=== PATIENT | female | born 1940 | race Caucasian/White ===

== ENCOUNTER 2018-04-19 19:26 | Inpatient (IN) ==
[2018-04-19] MEDS ORDERED: 0.9 % Sodium Chloride 500 ML IVC ONE (19:32)
[2018-04-19] MEDS ORDERED: Aspirin 81 MG TAB.CHEW PO ONE (19:32)
[2018-04-19] MEDS ORDERED: Isovue-370 500 ML INFUS..BTL IV ONE (19:33)
--- NOTE | 2018-04-19 19:42 | Emergency Department Note ---
Disposition Clinical Impression: NSTEMI (non-ST elevated myocardial infarction) Chest pain Qualifiers: Chest pain type: unspecified Qualified Code(s): R07.9 - Chest pain, unspecified Disposition: Admitted As Inpatient Condition: Fair Time of Disposition: 21:53 Chest Pain HPI - General Chief Complaint: ED Chest Pain Stated Complaint: CP Time Seen by Provider: 04/19/18 19:32 Source: patient, EMS Limitations: no limitations Vital Signs Reviewed: Yes Nursing Notes Reviewed: Yes - History of Present Illness HPI Narrative: Patient is a 77-year-old female who presents to [facility] ED via EMS with concern for chest pain. States her symptoms started abruptly at 3 AM. Patient states this pain came on gradually but radiated into her back. Admits to some nausea, no vomiting. No fever or chills. Past medical history significant for hypertension, CVA, hyperlipidemia. Patient was hypertensive upon her arrival at 236/143. Patient's repeat blood pressure in the room is improved at 160s over 111. Patient states she has had her blood pressure medications today. Pt complaint: chest pain Onset (ago): hour(s) Time: 03:00 Duration: intermittent Onset: during rest Pain Location: substernal Severity: moderate Severity scale (1-10): 5 Quality: aching, dull Pain Radiation: back Improves with: nothing Worsens with: nothing Associated symptoms: Reports: nausea, dyspnea. Denies: vomiting, fever, cough Treatments prior to arrival chest pain: none - Related Data Home Medications Medication Instructions Recorded Confirmed Acetaminophen/Diphenhydramine 1 tab PO HS 10/09/16 03/07/18 [Acetaminophen Pm Caplet] Cholecalciferol (D-3) [Vitamin D] 1,000 unit PO DAILY 10/09/16 03/07/18 HYDROcodone/Acet 5/325 mg [[place] 1 tab PO DAILY PRN 10/09/16 03/07/18 5-325 mg] Levothyroxine [Synthroid] 88 mcg PO DAILY 10/09/16 03/07/18 Pravastatin Sodium [Pravachol] 20 mg PO DAILY 10/09/16 03/07/18 hydrOXYzine HCl [Hydroxyzine HCl] 50 mg PO Q6H PRN 10/09/16 03/07/18 L. Acidophilus/Pectin, [place] 1 cap PO DAILY 10/22/16 03/07/18 [Acidophilus Probiotic Capsule] cloNIDine HCl [CloNIDine HCl] 0.2 mg PO BID 10/22/16 03/07/18 Diltiazem HCl [Diltiazem 24Hr Cd] 360 mg PO DAILY 12/30/17 03/07/18 Potassium Chloride 10 meq PO DAILY 12/30/17 03/07/18 Olmesartan Medoxomil [Olmesartan 20 mg PO DAILY 04/19/18 04/19/18 Medoxomil] Previous Rx's Medication Instructions Recorded Ascorbic Acid [Vitamin C] 500 mg PO DAILY #30 tablet 12/06/17 Aspirin 81 mg PO DAILY 365 Days tab.chew 12/06/17 Magnesium Oxide [Mag-Ox] 400 mg PO DAILY #5 tablet 12/06/17 Allergies Allergy/AdvReac Type Severity Reaction Status Date / Time acetaminophen [From Percocet] AdvReac Nausea Verified 04/19/18 21:02 caffeine [From Cafergot] AdvReac Swelling Verified 04/19/18 21:02 of Lip/Tongue/Throat codeine AdvReac Rash Verified 04/19/18 21:02 Ergotamine [From Cafergot] AdvReac Swelling Verified 04/19/18 21:02 of Lip/Tongue/Throat Oxycodone [From Percocet] AdvReac Swelling Verified 04/19/18 21:02 of Lip/Tongue/Throat All systems ED: reviewed and negative except as stated. Chest Pain PMH - Past Medical History Medical history: Reports: arthritis, hyperlipidemia, hypertension, RA, thyroid disease Surgical history: Reports: hysterectomy Psychiatric history: Reports: depression - Social History Smoking Status: Light tobacco smoker Alcohol use: Reports: occasionally Drug use: Reports: none Physical Exam - General Limitations: no limitations General appearance: alert - Head Head exam: atraumatic, normocephalic, normal inspection - Eye Eye exam: Present: EOMI - ENT ENT exam: normal exam, normal oropharynx, mucous membranes moist - Neck Neck exam: Present: normal inspection, full ROM, trachea midline - Chest Chest inspection: Present: normal inspection, symmetric chest wall rise - Respiratory Respiratory exam: Present: normal lung sounds bilaterally - Cardiovascular Cardiovascular exam: Present: normal rhythm, tachycardia - Abdominal Exam Abdominal exam: Present: soft, Non-Tender. Absent: tenderness, distention, guarding, rebound, rigidity - Extremities Exam Extremities exam: Present: normal inspection, full ROM. Absent: tenderness, pedal edema - Expanded Upper Extremity Exam Vascular exam: Normal: radial pulse (decreased LUE vs RUE pulse) - Neurological Exam Neurological exam: Present: alert, oriented X3 - Psychiatric Psychiatric exam: Present: normal affect, normal mood - Skin Skin exam: Present: warm, dry, intact, normal color Course Course Narrative: Patient seen and examined. Chest pain with hypertension. Patient is hypertensive with initial blood pressure 240s over 140s. Due to the pain radiating into the back and a pulse deficit on palpation, concern for possible aortic dissection. CTA of the chest abdomen and pelvis ordered. Cardiopulmonary workup initiated. We will give nitroglycerin to see if this helps with her chest pain. - Reevaluation(s) Reevaluation #1: Patient's troponin was elevated at 0.18. Heparin drip started for NSTEMI. Repeat EKG was obtained which shows persistent inverted T waves in leads V3 and V4. I discussed the patient's presentation with the hospitalist who has accepted patient for admission. Nitroglycerin drip was started. I also discussed the case with cardiology who will see the patient in consultation. Time: 21:52 Vital Signs Temperature 97.8 F 04/19/18 19:29 Pulse Rate 105 04/19/18 19:29 Respiratory Rate 14 04/19/18 19:29 Blood Pressure 168/117 04/19/18 19:29 O2 Sat by Pulse Oximetry 96 04/19/18 19:29 Temperature 97.8 F 04/19/18 19:29 Pulse Rate 104 04/19/18 21:23 Respiratory Rate 14 04/19/18 21:23 Blood Pressure 211/115 04/19/18 21:23 O2 Sat by Pulse Oximetry 97 04/19/18 21:23 Oxygen Delivery Oxygen Delivery Room Air Chest Pain - Medical Records Medical records reviewed: Yes I reviewed the patient's medical records. - Lab Data Lab results reviewed: Yes I reviewed the patient's lab results. Result diagrams: 04/19/18 20:11 04/19/18 20:11 Lab Results 04/19/18 04/19/18 04/19/18 Range/Units 20:11 20:11 20:11 WBC 7.2 (4.3-11.1) K/mcL RBC 4.56 (3.82-4.97) M/mcL Hgb 13.0 (11.5-15.4) g/dL Hct 39.5 (35.3-44.9) % MCV 86.6 (83.0-100.0) fL MCH 28.5 (28.0-33.3) pg MCHC 32.9 (31.6-35.5) g/dL RDW 13.4 (11.5-14.5) % Plt Count 235 (140-400) K/mcL MPV 9.9 (9.4-12.4) fL Immature Gran % 0.1 (0-4) % Seg Neutrophils % 68.3 % Lymphocytes % 21.1 % Monocytes % 9.0 % Eosinophils % 1.2 % Basophils % 0.3 % Neutrophils # 4.9 (1.6-8.9) K/mcL Lymphocytes # 1.5 (0.6-4.6) K/mcL Monocytes # 0.7 (0.0-1.3) K/mcL Eosinophils # 0.1 (0.0-0.6) K/mcL Basophils # 0.0 (0.0-0.2) K/mcL PT 11.5 (9.4-12.1) Seconds INR 1.0 APTT 34.8 (26.0-36.0) Seconds Heparin Anti-Xa, Unfract 0.04 L (0.30-0.70) IU/mL Sodium (136-145) mEq/L Potassium (3.5-5.1) mEq/L Chloride (98-107) mEq/L Carbon Dioxide (23-29) mEq/L BUN (8-23) mg/dL Creatinine (0.60-1.20) mg/dL Est GFR ( Amer) (> 60) Est GFR (Non-Af Amer) (> 60) BUN/Creatinine Ratio (6-26) Glucose (70-105) mg/dL Calculated Osmolality (280-300) Calcium (8.6-10.3) mg/dL Troponin I (< 0.04) ng/mL B-Natriuretic Peptide 601 H (Less than 100) pg/mL 04/19/18 Range/Units 20:11 WBC (4.3-11.1) K/mcL RBC (3.82-4.97) M/mcL Hgb (11.5-15.4) g/dL Hct (35.3-44.9) % MCV (83.0-100.0) fL MCH (28.0-33.3) pg MCHC (31.6-35.5) g/dL RDW (11.5-14.5) % Plt Count (140-400) K/mcL MPV (9.4-12.4) fL Immature Gran % (0-4) % Seg Neutrophils % % Lymphocytes % % Monocytes % % Eosinophils % % Basophils % % Neutrophils # (1.6-8.9) K/mcL Lymphocytes # (0.6-4.6) K/mcL Monocytes # (0.0-1.3) K/mcL Eosinophils # (0.0-0.6) K/mcL Basophils # (0.0-0.2) K/mcL PT (9.4-12.1) Seconds INR APTT (26.0-36.0) Seconds Heparin Anti-Xa, Unfract (0.30-0.70) IU/mL Sodium 140 (136-145) mEq/L Potassium 3.8 (3.5-5.1) mEq/L Chloride 100 (98-107) mEq/L Carbon Dioxide 32 H (23-29) mEq/L BUN 13 (8-23) mg/dL Creatinine 0.59 L (0.60-1.20) mg/dL Est GFR ( Amer) > 60 (> 60) Est GFR (Non-Af Amer) > 60 (> 60) BUN/Creatinine Ratio 22 (6-26) Glucose 116 H (70-105) mg/dL Calculated Osmolality 291 (280-300) Calcium 10.1 (8.6-10.3) mg/dL Troponin I 0.18 H* (< 0.04) ng/mL B-Natriuretic Peptide (Less than 100) pg/mL - Radiology Data Radiology results reviewed: Yes I reviewed the patient's radiology results. Abdomen/Pelvis CTA 04/19/18 19:33 IMPRESSION: Multifocal atherosclerotic change throughout the chest abdomen and pelvis with multifocal associated narrowing in the abdomen and pelvis. There is no dissection. Multiple asymmetric lymph nodes in the right axillary region. Follow-up is recommended. A few tiny nodular densities are noted in the chest as described. These are indeterminate. There is no pathologic adenopathy in the mediastinum or hilar regions. No acute abnormality in the abdomen. Diverticulosis in the colon. Segmental incomplete distention in the sigmoid colon. This is most likely due to underdistention and less likely secondary to wall thickening. Degenerative disc disease in the lumbar spine, greatest at L4-5. D/ / Osmar Pablo / Osmar Pablo Interpreting Provider: Osmar Pablo Chest CTA 04/19/18 19:33 IMPRESSION: Multifocal atherosclerotic change throughout the chest abdomen and pelvis with multifocal associated narrowing in the abdomen and pelvis. There is no dissection. Multiple asymmetric lymph nodes in the right axillary region. Follow-up is recommended. A few tiny nodular densities are noted in the chest as described. These are indeterminate. There is no pathologic adenopathy in the mediastinum or hilar regions. No acute abnormality in the abdomen. Diverticulosis in the colon. Segmental incomplete distention in the sigmoid colon. This is most likely due to underdistention and less likely secondary to wall thickening. Degenerative disc disease in the lumbar spine, greatest at L4-5. D/ / Osmar Pablo / Osmar Pablo Interpreting Provider: Osmar Pablo - EKG Data EKG attestation: Yes I reviewed and interpreted this EKG. EKG results narrative: EKG done at 2058 shows sinus tachycardia with a rate of [address] elevation or depression noted. Patient does have inverted T waves in leads V3 and V4 which do appear new from EKG done 12/04/2017. Heart Score - Score History: Moderately Suspicious EKG: Non Specific repolarisation Disturbance Age: Greater than 65 Risk Factors: Equal/Greater than 3 risk factor or history of atherosclerotic disease Troponin: Less than normal limit HEART Score Total: 6 Attestation Statement - Attestation Attestation: I, Sudarshan Miller DO, examined this patient [id number] and my medical decision-making was reviewed with Mesha Ramos DO , Resident Physician. I agree with the documented findings, disposition and treatment plan as described except to the extent set forth below. Please see my progress notes for details.
[2018-04-19] MEDS: Nitroglycerin 0.4 MG TAB.SUBL SL PRN ×2 (20:06→21:14)
[2018-04-19 20:22] LABS: Basophils % 0.3 %; Eosinophils # 0.1 K/mcL (0.0-0.6); Eosinophils % 1.2 %; Hematocrit 39.5 % (35.3-44.9); Immature Granulocytes % 0.1 % (0-4); Lymphocytes # 1.5 K/mcL (0.6-4.6); Lymphocytes % 21.1 %; Mean Corpuscular HGB Conc 32.9 g/dL (31.6-35.5); Mean Corpuscular Hemoglobin 28.5 pg (28.0-33.3); Mean Corpuscular Volume 86.6 fL (83.0-100.0); Mean Platelet Volume 9.9 fL (9.4-12.4); Monocytes # 0.7 K/mcL (0.0-1.3); Neutrophils # 4.9 K/mcL (1.6-8.9); Platelet Count 235 K/mcL (140-400); Red Blood Count 4.56 M/mcL (3.82-4.97); Red Cell Distribution Width 13.4 % (11.5-14.5); Segmented Neutrophils % 68.3 %
[2018-04-19 20:33] LABS: Prothrombin Time 11.5 Seconds (9.4-12.1)
[2018-04-19 20:35] LABS: Activated Partial Thrombo Time 34.8 Seconds (26.0-36.0)
[2018-04-19 20:42] LABS: BUN/Creatinine Ratio 22 (6-26); Blood Urea Nitrogen 13 mg/dL (8-23); Calcium 10.1 mg/dL (8.6-10.3); Carbon Dioxide 32 mEq/L (23-29); Chloride 100 mEq/L (98-107); Glucose 116 mg/dL (70-105); Osmolality,Calculated 291 (280-300); Potassium 3.8 mEq/L (3.5-5.1); Sodium 140 mEq/L (136-145); eGFR For Non-African Americans > 60 (> 60)
[2018-04-19 20:48] LABS: Troponin I 0.18 ng/mL (< 0.04)
[2018-04-19] MEDS ORDERED: *HR* Heparin 5,000 UNIT/ML VIAL IVP ONE (20:51)
[2018-04-19] MEDS ORDERED: *HR* Heparin 5,000 UNIT/ML VIAL IVP PRN ×2 (20:51)
[2018-04-19] MEDS ORDERED: Heparin 25,000 UNIT/500 ML D5W 25,000 UNIT/500 ML BAG IVC SCH (21:00)
[2018-04-19] MEDS ORDERED: cloNIDine HCl 0.1 MG TABLET PO ONE (21:02)
--- NOTE | 2018-04-19 21:07 | Emergency Department Note ---
Disposition Clinical Impression: Chest pain, NSTEMI (non-ST elevated myocardial infarction) Disposition: Admitted As Inpatient Condition: Fair Time of Disposition: 21:50 General Adult HPI - General Chief complaint: ED Chest Pain Stated complaint: CP Time Seen by Provider: 04/19/18 19:32 Source: patient, EMS Limitations: no limitations - History of Present Illness Pain Scale: 5 - Related Data Home Medications Medication Instructions Recorded Confirmed Acetaminophen/Diphenhydramine 1 tab PO HS 10/09/16 03/07/18 [Acetaminophen Pm Caplet] Cholecalciferol (D-3) [Vitamin D] 1,000 unit PO DAILY 10/09/16 03/07/18 HYDROcodone/Acet 5/325 mg [[place] 1 tab PO DAILY PRN 10/09/16 03/07/18 5-325 mg] Levothyroxine [Synthroid] 88 mcg PO DAILY 10/09/16 03/07/18 Pravastatin Sodium [Pravachol] 20 mg PO DAILY 10/09/16 03/07/18 hydrOXYzine HCl [Hydroxyzine HCl] 50 mg PO Q6H PRN 10/09/16 03/07/18 L. Acidophilus/Pectin, [place] 1 cap PO DAILY 10/22/16 03/07/18 [Acidophilus Probiotic Capsule] cloNIDine HCl [CloNIDine HCl] 0.2 mg PO BID 10/22/16 03/07/18 Diltiazem HCl [Diltiazem 24Hr Cd] 360 mg PO DAILY 12/30/17 03/07/18 Potassium Chloride 10 meq PO DAILY 12/30/17 03/07/18 Olmesartan Medoxomil [Olmesartan 20 mg PO DAILY 04/19/18 04/19/18 Medoxomil] Previous Rx's Medication Instructions Recorded Ascorbic Acid [Vitamin C] 500 mg PO DAILY #30 tablet 12/06/17 Aspirin 81 mg PO DAILY 365 Days tab.chew 12/06/17 Magnesium Oxide [Mag-Ox] 400 mg PO DAILY #5 tablet 12/06/17 Allergies Allergy/AdvReac Type Severity Reaction Status Date / Time acetaminophen [From Percocet] AdvReac Nausea Verified 04/19/18 21:02 caffeine [From Cafergot] AdvReac Swelling Verified 04/19/18 21:02 of Lip/Tongue/Throat codeine AdvReac Rash Verified 04/19/18 21:02 Ergotamine [From Cafergot] AdvReac Swelling Verified 04/19/18 21:02 of Lip/Tongue/Throat Oxycodone [From Percocet] AdvReac Swelling Verified 04/19/18 21:02 of Lip/Tongue/Throat Past Medical History - Past Medical History Medical history: Reports: arthritis, hyperlipidemia, hypertension, RA, thyroid disease Surgical history: Reports: hysterectomy Psychiatric history: Reports: depression - Social History Smoking Status: Light tobacco smoker Smokeless Tobacco Status: Yes (vapor) Alcohol use: Reports: occasionally Drug use: Reports: none Physical Exam - General Limitations: no limitations General appearance: alert Course Vital Signs Temperature 97.8 F 04/19/18 19:29 Pulse Rate 105 04/19/18 19:29 Respiratory Rate 14 04/19/18 19:29 Blood Pressure 168/117 04/19/18 19:29 O2 Sat by Pulse Oximetry 96 04/19/18 19:29 Temperature 97.8 F 04/19/18 19:29 Pulse Rate 104 04/19/18 21:23 Respiratory Rate 14 04/19/18 21:23 Blood Pressure 211/115 04/19/18 21:23 O2 Sat by Pulse Oximetry 97 04/19/18 21:23 Oxygen Delivery Oxygen Delivery Room Air Medical Decision Making - Lab Data Result diagrams: 04/19/18 20:11 04/19/18 20:11 Lab Results 04/19/18 04/19/18 04/19/18 Range/Units 20:11 20:11 20:11 WBC 7.2 (4.3-11.1) K/mcL RBC 4.56 (3.82-4.97) M/mcL Hgb 13.0 (11.5-15.4) g/dL Hct 39.5 (35.3-44.9) % MCV 86.6 (83.0-100.0) fL MCH 28.5 (28.0-33.3) pg MCHC 32.9 (31.6-35.5) g/dL RDW 13.4 (11.5-14.5) % Plt Count 235 (140-400) K/mcL MPV 9.9 (9.4-12.4) fL Immature Gran % 0.1 (0-4) % Seg Neutrophils % 68.3 % Lymphocytes % 21.1 % Monocytes % 9.0 % Eosinophils % 1.2 % Basophils % 0.3 % Neutrophils # 4.9 (1.6-8.9) K/mcL Lymphocytes # 1.5 (0.6-4.6) K/mcL Monocytes # 0.7 (0.0-1.3) K/mcL Eosinophils # 0.1 (0.0-0.6) K/mcL Basophils # 0.0 (0.0-0.2) K/mcL PT 11.5 (9.4-12.1) Seconds INR 1.0 APTT 34.8 (26.0-36.0) Seconds Heparin Anti-Xa, Unfract 0.04 L (0.30-0.70) IU/mL Sodium (136-145) mEq/L Potassium (3.5-5.1) mEq/L Chloride (98-107) mEq/L Carbon Dioxide (23-29) mEq/L BUN (8-23) mg/dL Creatinine (0.60-1.20) mg/dL Est GFR ( Amer) (> 60) Est GFR (Non-Af Amer) (> 60) BUN/Creatinine Ratio (6-26) Glucose (70-105) mg/dL Calculated Osmolality (280-300) Calcium (8.6-10.3) mg/dL Troponin I (< 0.04) ng/mL B-Natriuretic Peptide 601 H (Less than 100) pg/mL 04/19/18 Range/Units 20:11 WBC (4.3-11.1) K/mcL RBC (3.82-4.97) M/mcL Hgb (11.5-15.4) g/dL Hct (35.3-44.9) % MCV (83.0-100.0) fL MCH (28.0-33.3) pg MCHC (31.6-35.5) g/dL RDW (11.5-14.5) % Plt Count (140-400) K/mcL MPV (9.4-12.4) fL Immature Gran % (0-4) % Seg Neutrophils % % Lymphocytes % % Monocytes % % Eosinophils % % Basophils % % Neutrophils # (1.6-8.9) K/mcL Lymphocytes # (0.6-4.6) K/mcL Monocytes # (0.0-1.3) K/mcL Eosinophils # (0.0-0.6) K/mcL Basophils # (0.0-0.2) K/mcL PT (9.4-12.1) Seconds INR APTT (26.0-36.0) Seconds Heparin Anti-Xa, Unfract (0.30-0.70) IU/mL Sodium 140 (136-145) mEq/L Potassium 3.8 (3.5-5.1) mEq/L Chloride 100 (98-107) mEq/L Carbon Dioxide 32 H (23-29) mEq/L BUN 13 (8-23) mg/dL Creatinine 0.59 L (0.60-1.20) mg/dL Est GFR ( Amer) > 60 (> 60) Est GFR (Non-Af Amer) > 60 (> 60) BUN/Creatinine Ratio 22 (6-26) Glucose 116 H (70-105) mg/dL Calculated Osmolality 291 (280-300) Calcium 10.1 (8.6-10.3) mg/dL Troponin I 0.18 H* (< 0.04) ng/mL B-Natriuretic Peptide (Less than 100) pg/mL Critical Care Time Critical Care Time: Yes Total Critical Care Time: 35 Attestation: Critical care performed: Time is exclusive of separately billable procedures. Time includes: direct patient care, patient reassessment, coordination of patient care, interpretation of data (laboratory data, radiology data, and respiratory data), review of patient's medical records, medical consultation and documentation of patient care. Procedures included in critical care time: Procedures excluded from critical care time: Attestation Statement - Attestation Attestation: I, Sudarshan Miller DO, examined this patient [id number] and my medical decision-making was reviewed with Mesha Ramos DO , Resident Physician. I agree with the documented findings, disposition and treatment plan as described except to the extent set forth below. Please see my progress notes for details. 77-year-old female presents emergency room by EMS for evaluation of chest pain that started approximately 3 AM. Patient has had intermittent symptoms throughout the day. She describes the pain anterior chest wall that radiates into her back in between the scapula. Patient has a cardiac evaluation completed in the past including an echo and stress test but is been multiple years. She does have hypertension that is poorly controlled. Patient does have hyperlipidemia. Denies any diabetes. Patient decided to come in this afternoon because the pain has been intermittent but progressively getting worse. On presentation patient's blood pressure was 243/135. Because the patient's pain and the back was determined that CT angiography the chest and abdomen will be completed ruling out dissection or aneurysm. Patient does not have a specific history of this. Because of the escalated blood pressure is a concern. Patient's creatinine from 01/31/18. To be stable with no significant signs of renal insufficiency. Patient will have fluids ordered as well as aspirin EKG CBC chemistry troponin and BNP here in the emergency room. Disposition will most likely be admission to the hospital once the full workup treatment course and evaluation are established. Physical exam is otherwise unremarkable she is resting comfortably in the bed she says the pain is much better than it has been previously but is not gone. Her lungs are clear heart is regular but intermittently tachycardic her abdomen is soft nontender nondistended with no guarding no rigidity no peritoneal symptoms. She has no pulsatile masses or lesions. She moves all 4 extremities without any difficulty. She does have a slight left-sided facial droop which is consistent with a previous stroke. She also had a carotid endarterectomy that appears to be stable. There is no carotid bruit noted on evaluation. Patient will have detailed workup completed this time in the disposition will be determined. She denies any hematuria or hematochezia at this point. She has not had any history of gastrointestinal bleed. Patient will require admission once workup and treatment course are completed symptom control will be established. See detailed documentation the physical exam, medical intervention, medical decision -making and disposition in the resident physician's note. No critical care pad the patient's treatment course at this time. 2100 Patient still has slight chest pressure. The continuation of the mitral child will be completed. Initial EKG does not show any acute signs of ST segment elevation or abnormality. Patient is having repeat EKG repeat nitroglycerin and then heparin drip will be started secondary to an elevated troponin of 0.18. Patient is otherwise stable blood pressure still escalated to 215 systolic after 1 nitroglycerin. She will be given her home clonidine 0.2 mg and then the second and third the symmetrical 7. She understands that we are performing her pain to be 0 and was symptomatically control as well here. Disposition will be admission. Approximately 35 minutes of critical care has been applied secondary to multidisciplinary intervention including heparin drip and nitroglycerin trial. Patient does have what appears to be an organ damage with elevated troponin hypertension with concern for angina-like presentation as well. [address] Hunter Oviedo reviewed the EKGs as well as a presentation felt that nitroglycerin as well as heparin was appropriate patient did not meet immediate cardiac catheterization requirements. Patient does not have any diagnostic findings for acute myocardial infarction. Patient does have T-wave inversions are new with a possible depression in lead [address] segment elevation or contiguous lead abnormalities at this point. Patient is chest pain -free. She does feel fullness in her chest that is better than what it was on arrival but she has not had actual pain in her chest since this morning at 3 AM. Patient will be admitted for definitive management and evaluation. The hospitalist Dr. zimmerman reviewed the presentation other recommendations or concerns. Patient's blood pressure medication will be given the patient will be observed. Patient is otherwise clinically stable. Expect no other intervention to be required. Patient will be observed in emergency room until admission process is completed
[2018-04-19 21:09] LABS: Heparin anti-factor XA UFH 0.04 IU/mL (0.30-0.70)
[2018-04-19] MEDS ORDERED: Nitroglycerin 25 MG/250 ML INFUS..BTL IVC SCH (21:30)
--- NOTE | 2018-04-19 22:24 | Internal Med History&Physical ---
Date of Encounter: 04/19/18 Time of Encounter: 22:24 Internal Medicine - H&P: HPI Chief complaint: chest pain Admitted From: Home Plans for Post Hospital Care: Home History of present illness: Ms. Garza is a 77 year old with a history of poorly controlled-hypertension, hyperlipidemia, carotid artery disease s/p left endarterectomy and arthritis who presents complaining of chest pressure-like commenced at approximately 3 AM while she was asleep. She states that it was intermittent throughout the morning and had a feeling of indigestion and fullness but was not relieved with home antacid therapy. Given the ongoing complaints and increasing severity her blood pressure was taken by her [id number] with the finding of BP 243/135mmHg. Arrival to the ER given the finding of continued high blood pressure with systolic above 200 and complaints of pain radiating to her back, a CT chest/ abdomen was done which ruled out dissection but showed extensive vascular calcification disease. Her troponin was midlly elevated and due to the ongoing pain after SL NTG consideration was given for nitroglycerin gtt. She was also given 0.2mg of clonidine which she takes at home. Transport Rn Dr. Hunter Oviedo is consulted by the ER and repeat EKGs which were not diagnostic of an acute NE. On arrival to the floor she was seen resting comfortably in bed stating that her chest pain and pressure had resolved for which reason I decided not to start the nitroglycerin drip. Past Med Surg Social Fam HX - Past Medical History Medical history: arthritis, hyperlipidemia, hypertension, RA, thyroid disease Psychiatric history: depression - Past Surgical History Surgical History: hysterectomy Additional surgical history: cervical disc surgery - Social History Smoking Status: Light tobacco smoker Smokeless Tobacco Status: Yes (vapor) Alcohol use: occasionally Drug use: none - Family History Mother Hx Family Cardiac Disorders: Yes Father Hx Family Cancer: Yes (bone) Internal Medicine - H&P: Meds Acetaminophen/Diphenhydramine [Acetaminophen Pm Caplet] 2 tab PO HS 10/09/16 [ History] Cholecalciferol (D-3) [Vitamin D] 1,000 unit PO DAILY 10/09/16 [History] HYDROcodone/Acet 5/325 mg [[place] 5-325 mg] 1 tab PO BID PRN 10/09/16 [History] Levothyroxine [Synthroid] 88 mcg PO DAILY 10/09/16 [History] Pravastatin Sodium [Pravachol] 20 mg PO DAILY 10/09/16 [History] hydrOXYzine HCl [Hydroxyzine HCl] 50 mg PO HS 10/09/16 [History] L. Acidophilus/Pectin, [place] [Acidophilus Probiotic Capsule] 1 cap PO DAILY [History] cloNIDine HCl [CloNIDine HCl] 0.2 mg PO BID 10/22/16 [History] Aspirin 81 mg PO DAILY 365 Days tab.chew 12/06/17 [Rx] Cyanocobalamin (Vitamin B-12) [Vitamin B12] 1,000 mcg PO DAILY 04/19/18 [History ] Olmesartan Medoxomil [Olmesartan Medoxomil] 20 mg PO DAILY 04/19/18 [History] 3 Allergy/AdvReac Type Severity Reaction Status Date / Time acetaminophen [From Percocet] AdvReac Nausea Verified 04/19/18 21:02 caffeine [From Cafergot] AdvReac Swelling Verified 04/19/18 21:02 of Lip/Tongue/Throat codeine AdvReac Rash Verified 04/19/18 21:02 Ergotamine [From Cafergot] AdvReac Swelling Verified 04/19/18 21:02 of Lip/Tongue/Throat Oxycodone [From Percocet] AdvReac Swelling Verified 04/19/18 21:02 of Lip/Tongue/Throat All Systems PM: A 10-system review of systems was performed and is negative for pertinent findings except as documented above in the HPI. - Constitutional Vitals: Temp Pulse Resp BP Pulse Ox 97.8 F 104 16 199/116 97 04/19/18 19:29 04/19/18 21:23 04/19/18 21:50 04/19/18 21:50 04/19/18 21:23 Exam: Vitals: Reviewed and notable for elevated blood pressure. General: Well-developed elderly female lying in bed comfortably in no acute distress Skin: No lesions or ulcers HEENT: Moist mucous membranes. No conjunctivae pallor. Neck: No lymphadenopathy. No JVD. No carotid bruits. No palpable thyroid. Chest: Normal thoracic expansion. Normal breath sounds. Clear to auscultation. Heart: Normal S1 & S2; rhythmic. No rubs or murmurs. Abdomen: Non-distended, soft and non-tender to palpation. No peritoneal reaction. Liver is normal in size. Spleen is not palpable. Extremities: No clubbing, cyanosis or edema. No calf tenderness. Normal distal pulses. Neurological: Awake, alert and oriented to person, place and time. No focal deficits. Psych: Affect appropriate. Internal Med - H&P Results - Labs CBC & Chem 7: 04/19/18 20:11 04/19/18 20:11 - Assessment and plan (1) NSTEMI (non-ST elevated myocardial infarction) Current Visit: Yes Status: Acute Assessment and plan: EKG reviewed did not show ST segment elevation or depressions and no TWI. Her troponin is mildly elevated in the setting of malignant blood pressures values which could have led to myocardial demand ischemia. -She has received loading dose of ASA and will continue heparin gtt for now pending cardiology evaluation in the morning and observing the trend of her serum troponins. -Repeat another EKG and continue to monitor on telemetry. -Statin + daily ASA to continue. Will give high dose atorvastatin tonight. -Of note the patient states she underwent a chemical stress test in the past before her carotid surgery but was prematurely stopped due to an acute elevation in her BP. (2) Hypertensive emergency Current Visit: Yes Status: Acute Assessment and plan: Very malignant BP values reported in this petite elderly woman presenting with chest symptoms and troponin elevation and therefore can constitute an emergency even without flash pulmonary edema. Unclear if a secondary cause of her HTN has been investigated given the values or if it is just poor medical control with inadequate therapy. -Will resume oral therapy and monitor closely. On review of her home meds she is only on clonidine and olmesartan. Will need consideration for a diuretic and/ or calcium channel castro. (3) Carotid arterial disease Current Visit: Yes Status: Chronic Assessment and plan: s/p endarterectomy due to mild stroke it seemed to have caused. -No acute intervention needed as she is getting outpatient follow up. Qualifiers: Carotid artery disease type: occlusion Laterality: right Qualified Code(s ): I65.21 - Occlusion and stenosis of right carotid artery (4) Hypothyroid Current Visit: Yes Status: Chronic Assessment and plan: Currently on 88mcg daily of levothyroxine. -Will check TSH in the morning. Qualifiers: Hypothyroidism type: acquired Qualified Code(s): E03.9 - Hypothyroidism, unspecified - Time Spent With Patient Total time spent is greater than 50% in coordination of care (as documented) at patient's floor/unit and/or counseling patient: Greater than 35 minutes
[2018-04-19] MEDS ORDERED: hydrOXYzine pamoate 25 MG CAPSULE PO PRN (23:07)
[2018-04-20 02:35] LABS: Basophils % 0.4 %; Eosinophils # 0.1 K/mcL (0.0-0.6); Eosinophils % 1.1 %; Hematocrit 39.4 % (35.3-44.9); Hemoglobin 13.1 g/dL (11.5-15.4); Immature Granulocytes % 0.1 % (0-4); Lymphocytes % 28.2 %; Mean Corpuscular HGB Conc 33.2 g/dL (31.6-35.5); Mean Corpuscular Hemoglobin 28.7 pg (28.0-33.3); Mean Corpuscular Volume 86.2 fL (83.0-100.0); Mean Platelet Volume 9.8 fL (9.4-12.4); Monocytes # 0.6 K/mcL (0.0-1.3); Monocytes % 7.9 %; Neutrophils # 4.5 K/mcL (1.6-8.9); Platelet Count 222 K/mcL (140-400); Red Blood Count 4.57 M/mcL (3.82-4.97); Red Cell Distribution Width 13.4 % (11.5-14.5); Segmented Neutrophils % 62.3 %
[2018-04-20 03:05] LABS: BUN/Creatinine Ratio 24 (6-26); Blood Urea Nitrogen 12 mg/dL (8-23); Calcium 9.8 mg/dL (8.6-10.3); Carbon Dioxide 27 mEq/L (23-29); Chloride 102 mEq/L (98-107); Glucose 113 mg/dL (70-105); Magnesium 1.8 mg/dL (1.6-2.6); Osmolality,Calculated 287 (280-300); Potassium 3.6 mEq/L (3.5-5.1); Sodium 138 mEq/L (136-145); eGFR For Non-African Americans > 60 (> 60)
[2018-04-20 03:17] LABS: Thyroid Stimulating Hormone 2.342 mcIU/mL (0.340-5.600)
[2018-04-20] MEDS: *HR* HYDROcodone/Acet 5/325 mg TABLET PO PRN ×2 (06:00→19:56)
[2018-04-20] MEDS: Magnesium Oxide 400 MG TABLET PO SCH ×2 (08:56→09:06)
[2018-04-20] MEDS: Aspirin 81 MG TAB.CHEW PO SCH (08:56)
[2018-04-20] MEDS: cloNIDine HCl 0.1 MG TABLET PO SCH ×2 (08:56→19:56)
[2018-04-20] MEDS: Cholecalciferol (D-3) 1,000 UNIT TABLET PO SCH (08:57)
[2018-04-20] MEDS ORDERED: Diltiazem CD (24hr) 180 MG CAPSULE PO SCH (09:00)
--- NOTE | 2018-04-20 09:49 | Cardiology Consult Note ---
<Jeffrey Joshi R - Last Filed: 04/20/18 10:21> Date of Encounter: 04/20/18 Time of Encounter: 09:46 Assessment and Plan (1) NSTEMI (non-ST elevated myocardial infarction) Status: Acute Troponins 0.18, 1.81, 1.36. CP that woke her from sleep at 3AM yesterday, intermittent CP since that time. EKG anterior ischemia. On heparin gtt. Continue ASA, Statin, Start BB. Per pt, reportedly had a LHC 3-4 years ago at [facility] without intervention. Recommend LH to further evaluate. R/B/A discussed. Pt agrees to proceed. LHC today. TTE to evaluate structure and function. (2) Abnormal chest CT Status: Acute Chest CT Multiple asymmetric lymph nodes in the right axillary region. Follow- up is recommended. Recommend addressing/management per primary team. Discussion w patient/family: The assessment and plan as outlined above was discussed with the patient and/or family members who expressed understanding and agreement. All questions were answered. Thank you for involving us in the care of your patient. Please call with any questions. I will discuss all the above with Dr. Darby and make changes as necessary. History of Present Illness Consult date: 04/20/18 Consult reason: NSTEMI Chief complaint: chest pain History of present illness: Ms. Garza is a 77 year old female with PMH of poorly controlled-hypertension, hyperlipidemia, carotid artery disease s/p left endarterectomy and arthritis who presents complaining of chest pressure-like commenced at approximately 3 AM while she was asleep. She states that it was intermittent throughout the morning and had a feeling of indigestion and fullness but was not relieved with home antacid therapy. BP found to be 243/135mmHg. CT chest/abdomen was done which ruled out dissection but showed extensive vascular calcification disease. Initial troponin 0.18, then 1.81, 1.36. Currently chest pain free. Pt reports having a LHC 3-4 years ago without intervention. EKG anterior ischemia. Past Med Surg Social Fam HX - Past Medical History Medical history: arthritis, hyperlipidemia, hypertension, RA, thyroid disease Additional medical history: Hyperthyroid. Hypothyroid. TIA x 2 Psychiatric history: depression - Past Surgical History Surgical History: hysterectomy Additional surgical history: cervical disc surgery - Social History Smoking Status: Light tobacco smoker Packs per day: 1 Smokeless Tobacco Status: Yes (vapor) Alcohol use: occasionally Drug use: none - Family History Mother Hx Family Cardiac Disorders: Yes Father Hx Family Cancer: Yes (bone) Medications and Allergies Acetaminophen/Diphenhydramine [Acetaminophen Pm Caplet] 2 tab PO HS 10/09/16 [ History] Cholecalciferol (D-3) [Vitamin D] 1,000 unit PO DAILY 10/09/16 [History] HYDROcodone/Acet 5/325 mg [[place] 5-325 mg] 1 tab PO BID PRN 10/09/16 [History] Levothyroxine [Synthroid] 88 mcg PO DAILY 10/09/16 [History] hydrOXYzine HCl [Hydroxyzine HCl] 50 mg PO HS 10/09/16 [History] L. Acidophilus/Pectin, [place] [Acidophilus Probiotic Capsule] 1 cap PO DAILY [History] cloNIDine HCl [CloNIDine HCl] 0.2 mg PO BID 10/22/16 [History] Aspirin 81 mg PO DAILY 365 Days tab.chew 12/06/17 [Rx] Cyanocobalamin (Vitamin B-12) [Vitamin B12] 1,000 mcg PO DAILY 04/19/18 [History ] Olmesartan Medoxomil 20 mg PO DAILY 04/19/18 [History] Atorvastatin [Lipitor] 40 mg PO HS #30 tablet 04/21/18 [Rx] Clopidogrel [Plavix] 75 mg PO DAILY #30 tablet 04/21/18 [Rx] Magnesium Oxide [Mag-Ox] 400 mg PO DAILY tablet 04/21/18 [Rx] Metoprolol Tartrate 25 mg PO BID #60 tablet 04/21/18 [Rx] Potassium Chloride 10 meq PO DAILY tab.er.prt 04/21/18 [Rx] amLODIPine [Norvasc] 5 mg PO DAILY #30 tablet 04/21/18 [Rx] 3 Allergy/AdvReac Type Severity Reaction Status Date / Time acetaminophen [From Percocet] AdvReac Nausea Verified 04/19/18 21:02 caffeine [From Cafergot] AdvReac Swelling Verified 04/21/18 08:12 of Lip/Tongue/Throat codeine AdvReac Rash Verified 04/19/18 21:02 Ergotamine [From Cafergot] AdvReac Swelling Verified 04/19/18 21:02 of Lip/Tongue/Throat Oxycodone [From Percocet] AdvReac Swelling Verified 04/19/18 21:02 of Lip/Tongue/Throat All Systems Review: The remainder of the systems were reviewed and are negative - Cardiovascular Cardiovascular: as per HPI, chest pain at rest, chest pain with exertion Physical Examination Vital Signs Temp Pulse Resp BP Pulse Ox 04/20/18 05:26 97.9 F 66 16 157/79 97 04/20/18 00:22 98 04/19/18 23:56 97.5 F L 85 18 175/87 95 04/19/18 22:17 97.8 F 97 18 191/95 96 04/19/18 21:50 16 199/116 04/19/18 21:23 104 14 211/115 97 04/19/18 19:36 96 04/19/18 19:29 97.8 F 105 14 168/117 96 Intake and Output 04/19/18 04/20/18 04/20/18 23:59 07:59 15:59 Intake Total 500 / 500 105 / 105 Balance 500 / 500 105 / 105 Intake: IV Fluids 500 / 500 105 / 105 0.9 % Sodium Chloride 500 ML @ 500 / 500 999 mls/hr IVC .Q31M ONE Rx#: [id number] Heparin 25,000 UNIT/500 ML D5W 105 / 105 25,000 unit In 500 ml @ 12 UNIT /KG/HR 14.37 mls/hr IVC .Q24H [place] Rx#:[id number] Oral 0 / 0 0 / 0 Other: # Voids 0 0 Weight 59.7 kg General: Conversant, No Apparent Distress HEENT: Atraumatic, Normocephaly, Mucus Membranes Moist Neck: No JVD, Normal carotid pulses Cardiac: Reg Rate and Rhythm, Normal S1 and S2, No Murmur Lungs: Normal Breath Sounds, No Wheeze, Rales, Rhonchi Neuro: Alert and responsive, No focal deficits noted Abdomen: Soft, Non-Tender Skin: No rashes noted on visualized skin Musculoskeletal: No Chest Wall Tenderness Extremities: No Clubbing, No Cyanosis, No Edema, Normal Pulses Results 04/20/18 02:24 04/20/18 02:24 Lab Results 04/20/18 04/20/18 04/20/18 02:24 02:24 02:24 WBC 7.2 Hgb 13.1 Hct 39.4 Plt Count 222 Sodium 138 Potassium 3.6 Chloride 102 Carbon Dioxide 27 BUN 12 Creatinine 0.51 L Glucose 113 H Calcium 9.8 Magnesium 1.8 Troponin I 1.81 H* TSH 2.342 04/20/18 08:08 WBC Hgb Hct Plt Count Sodium Potassium Chloride Carbon Dioxide BUN Creatinine Glucose Calcium Magnesium Troponin I 1.36 H* TSH Impressions Abdomen/Pelvis CTA 04/19/18 19:33 IMPRESSION: Multifocal atherosclerotic change throughout the chest abdomen and pelvis with multifocal associated narrowing in the abdomen and pelvis. There is no dissection. Multiple asymmetric lymph nodes in the right axillary region. Follow-up is recommended. A few tiny nodular densities are noted in the chest as described. These are indeterminate. There is no pathologic adenopathy in the mediastinum or hilar regions. No acute abnormality in the abdomen. Diverticulosis in the colon. Segmental incomplete distention in the sigmoid colon. This is most likely due to underdistention and less likely secondary to wall thickening. Degenerative disc disease in the lumbar spine, greatest at L4-5. D/ / Osmar Pablo / Osmar Pablo Interpreting Provider: Osmar Pablo Chest CTA 04/19/18 19:33 IMPRESSION: Multifocal atherosclerotic change throughout the chest abdomen and pelvis with multifocal associated narrowing in the abdomen and pelvis. There is no dissection. Multiple asymmetric lymph nodes in the right axillary region. Follow-up is recommended. A few tiny nodular densities are noted in the chest as described. These are indeterminate. There is no pathologic adenopathy in the mediastinum or hilar regions. No acute abnormality in the abdomen. Diverticulosis in the colon. Segmental incomplete distention in the sigmoid colon. This is most likely due to underdistention and less likely secondary to wall thickening. Degenerative disc disease in the lumbar spine, greatest at L4-5. D/ / Osmar Pablo / Osmar Pablo Interpreting Provider: Osmar Pablo Active Medications Hydrocodone Bitart/Acetaminophen ([place] 5-325 Mg) 1 tab PO DAILY PRN PRN Reason: mild to moderate pain Stop: 10/19/18 23:08 Last Admin: 04/20/18 06:00 Dose: 1 tab Aspirin (Aspirin) 81 mg PO DAILY [facility] Stop: 10/20/18 09:01 Last Admin: 04/20/18 08:56 Dose: 81 mg Clonidine HCl (Clonidine Hcl) 0.2 mg PO BID [facility] Stop: 10/20/18 09:01 Last Admin: 04/20/18 08:56 Dose: 0.2 mg Diltiazem HCl (Cardizem Cd) 360 mg PO DAILY [facility] Stop: 10/20/18 09:01 Last Admin: 04/20/18 08:57 Dose: 360 mg Heparin Sodium (Porcine) (Heparin) 3,600 unit 60 unit/kg (3600 unit) IVP Q6HR PRN PRN Reason: SEE COMMENTS Stop: 10/19/18 20:52 Heparin Sodium (Porcine) (Heparin) 1,800 unit 30 unit/kg (1800 unit) IVP Q6H PRN PRN Reason: SEE COMMENTS Stop: 10/19/18 20:52 Hydroxyzine Pamoate (Hydroxyzine Pamoate) 50 mg PO Q6H PRN PRN Reason: Anxiety Heparin Sodium/Dextrose (Heparin 25,000 Unit/500 Ml D5w) 25,000 unit in 500 mls @ 14.37 mls/hr IVC .Q24H [place]; 12 UNIT/KG/HR PRN Reason: Protocol Stop: 10/19/18 21:01 Last Titration: 04/20/18 04:52 Dose: 12 unit/kg/hr, 14.37 mls/hr Levothyroxine Sodium (Synthroid) 88 mcg PO 0630 [facility] Stop: 10/20/18 06:31 Last Admin: 04/20/18 06:00 Dose: 88 mcg Losartan Potassium (Cozaar) 50 mg PO DAILY [facility] Stop: 10/20/18 09:01 Last Admin: 04/20/18 08:56 Dose: 50 mg Magnesium Oxide (Mag-Ox) 400 mg PO DAILY [place] PRN Reason: Protocol Stop: 10/20/18 09:01 Last Admin: 04/20/18 09:06 Dose: Not Given Nitroglycerin (Nitroglycerin) 0.4 mg SL Q5MIN PRN PRN Reason: Chest Pain Stop: 10/19/18 19:35 Last Admin: 04/19/18 21:14 Dose: 0.4 mg Potassium Chloride (Potassium Chloride) 10 meq PO DAILY [facility] Stop: 10/20/18 09:01 Last Admin: 04/20/18 08:57 Dose: 10 meq Simvastatin (Zocor) 10 mg PO HS [facility] Stop: 10/20/18 21:01 Vitamin D (Vitamin D) 1,000 unit PO DAILY [facility] Stop: 10/20/18 09:01 Last Admin: 04/20/18 08:57 Dose: 1,000 unit - Imaging and Cardiology Echo: report reviewed - EKG Interpretation EKG results cardiology: personally reviewed (anterior ischemia) Consult Discharge Plan - Plan Instructions: Atorvastatin (By mouth), Myocardial Infarction (DC), Chest Pain ( DC), Coronary Intravascular Stent Placement (DC), Chronic Hypertension (DC), Coronary Intravascular Stent Placement, Health Education Specialist (GEN) Additional Instructions: RISK FACTORS: STOP SMOKING: If you smoke, STOP. Smoking or tobacco use significantly increases your risk of heart disease because nicotine causes the arteries to narrow or constrict. It also causes fats to stick to the artery. Your chances of having a heart attack are greatly increased if you continue to smoke. For more information, call the education line for smoking cessation 8-060-WHHHDFW EAT A LOW FAT/CHOLESTEROL/SODIUM DIET: This diet may help reduce your chances of having a heart attack. LIFTING: Avoid lifting anything more than 10 pounds for 5-7 days Prior to straining, laughing, sneezing and/or coughing, apply manual pressure directly over insertion site. ACTIVITY: You may walk or climb stairs as tolerated You can resume sexual activity as tolerated In general, you are encouraged to engage in a minimum of 30 minutes or more of moderate intensity physical activity, such as brisk walking, daily or at least 3 -4 times weekly BATHING Do not submerge the site into water (bath tub, hot tub, swimming pool) for 1 week. This can be a source for infection into the blood stream. You may shower after 24 hours SITE CARE: After 24 hours, you may remove the dressing and leave the site open to air. Keep the site clean and dry. Clean gently and pat dry. You can expect bruising and tenderness that gradually resolve within a week or two. Return to work as instructed per your physician Resume driving as instructed per physician Keep all scheduled follow up appointments Resume medications as instructed IMPORTANT: If prescribed a Platelet Aggregation Inhibitor such as, Plavix, Brilinta or Effient: Duration of therapy is minimum one year These medications are often used in combination with Aspirin in prevention of future heart attacks Never discontinue unless consult with your Licensed Physical Therapy Assistant STROKE (CVA) Risk factors for a stroke are: Age, cigarette smoking, diabetes, excessive alcohol consumption, family history, high blood pressure, overweight, physical inactivity, prior stroke, heart attack, diagnosis of carotid artery stenosis or other artery disease. Warning signs: Sudden numbness or weakness of the face, arm or leg; especially on one side of the body, sudden confusion, trouble speaking or understanding, sudden trouble seeing in one or both eyes, sudden trouble walking, dizziness, loss of balance or coordination, sudden severe headache with no cause. Call 911 or go to the Emergency Room. CONGESTIVE HEART FAILURE: If you have been diagnosed with Congestive Heart Failure (CHF) and your symptoms return, make an appointment with your physician Weigh yourself daily. Notify your physician if you have a weight gain of two or more pounds in one day or five or more pounds in one week. If you experience any difficulty breathing, please call 911 BLEEDING: Although the risk of bleeding is minimal, it can happen. If you have any bleeding from the site, apply firm pressure above the puncture site for 10-15 minutes. If the bleeding does not stop, continue manual pressure and call 911 Contact your physician if: You develop a fever greater than 101 degrees Fahrenheit Your site becomes reddened or has any drainage You have an increase in pain or burning at the site or if a large knot forms at the site. If you experience chest pain, shortness of breath, dizziness, or extreme tiredness, stop the activity and rest. Please notify your physicians office if you experience any of these symptoms and they are not relieved by rest please call 911! Referrals: Kerry Castrejon CNP [Advanced Practice Nurse] - 04/26/18 2:15 pm () Krissy Oviedo MD [Partnered Physician] - (office will call patient with follow up appointment) Prescriptions: amLODIPine [Norvasc] 5 mg PO DAILY #30 tablet Atorvastatin [Lipitor] 40 mg PO HS #30 tablet Clopidogrel [Plavix] 75 mg PO DAILY #30 tablet Metoprolol Tartrate 25 mg PO BID #60 tablet <Shabbir Darby - Last Filed: 04/22/18 14:11> Date of Encounter: 04/20/18 Time of Encounter: 10:00 - Attending Attestation I have personally performed a face to face evaluation on this patient. I have reviewed and agree with the care plan. History and Exam by me shows: CC: Chest pain HPI: Pt reports awoke approx 0300 with sudden onset mid sternal chest pain, burning sensation initially, then developed into a pressure sensation with fullness in her mid sternal area, which did not resolve with oral antacids. She was found to be very hypertensive in ER, chest tightness and blood pressure improved with sL ntg. She is currently pain free at rest. ROS: reviewed PMH: reviewed PE: pt seen and examined, agree with findings as documented IMP/Plan 1. NSTEMI: new onset chest pain with troponin elevation, recommend LHC/poss, risks and benefits of invasive strategy vs medical tx, pt elects to proceed wiht LHC later today 2. Hypertension, poorly controlled, will increase medications as required to control bp. 3.CAD: hx mild non-obstructive CAD on [facility] three for four years ago, not severe enough at that time to require intervention 4. Tobacco abuse - continues to smoke against medical advice. Assessment and Plan Discussion w patient/family: The assessment and plan as outlined above was discussed with the patient and/or family members who expressed understanding and agreement. All questions were answered. Thank you for involving us in the care of your patient. Please call with any questions. History of Present Illness History of present illness: Ms. Garza is a 77 year old female All Systems Review: The remainder of the systems were reviewed and are negative Results 04/21/18 08:38 04/21/18 04:26
--- NOTE | 2018-04-20 10:06 | Internal Med Progress Note ---
<Garett Lyon P - Last Filed: 04/20/18 11:20> Hospitalist Progress Note - Encounter Date of Encounter: 04/20/18 Time of Encounter: 09:00 - Subjective Interval History: Today is 1st day of admission. She is 77 year old with a history of poorly controlled-hypertension with antihypertensive medication hyperlipidemia, carotid artery disease s/p left endarterectomy after stroke almost 4 years back and arthritis presented to [facility] emergency with complaining of acute onset of chest pain pressure-like pain commenced at approximately 3 AM while she was asleep. She stated that she forgot to take anti hypertensive medication the night before The pain was 5-6/10, not radiating t neck and left shoulder, associated with mild nausea, but no vomiting. She felt dizzy , palpitaation and headache ,at that time. Her blood pressure was taken by her [id number] at home was BP 243/135mmHg. In ED the blood pressure with systolic above 200 . Her EKG was not suggestive of infaction or ischaemia ,a CT chest/abdomen was done which ruled out dissection but showed extensive vascular calcification disease. Her troponin was mildly elevated 0.18 She was also given SL nitrogycerine and 0.2mg of clonidine which she takes at home. Her chest pain gradually decreased and started feeling more comfortable. She was admitted for observation and further cardiac monitoring and work up. Today she is very much stable, chest pain is 0/10 right now.No heaadche, no palpitation, She has constipation Her Vitals: BP 157/79, pul 66-75, tem 97.9 F. Lab recent troponin 1.81 that was increased from 0.18 .She is on anti HTN medication , clonodine, Diltiazyme, Losartan, She is on NPO for cardiac imaging study for CAD . - Exam Vitals: Temp Pulse Resp BP Pulse Ox 97.9 F 66 16 157/79 97 04/20/18 05:26 04/20/18 05:26 04/20/18 05:26 04/20/18 05:26 04/20/18 05:26 Exam: Vitals: 157/89, pul 66 , Tem 97.9 ,97% sat General: Well-developed elderly female lying in bed comfortably in no acute distress Skin: No lesions or ulcers HEENT: Moist mucous membranes. No conjunctivae pallor. Neck: No lymphadenopathy. No JVD. No carotid bruits. No palpable thyroid. Chest: Normal thoracic expansion. Normal breath sounds. Clear to auscultation. Heart: Normal S1 & S2; rhythmic. No rubs or murmurs. Abdomen: Non-distended, soft and non-tender to palpation. No peritoneal reaction.no organomegaly Extremities: No clubbing, cyanosis or edema. No calf tenderness. Normal distal pulses. Neurological: Awake, alert and oriented to person, place and time. No focal deficits. - Assessment and Plan (1) NSTEMI (non-ST elevated myocardial infarction) Current Visit: Yes Status: Acute Assessment and Plan: EKG disnot show acute ischaemia or infarction Toponin: 0.18 1.36 , elevated troponin is due to malignant blood pressures values which could have led to myocardial demand ischemia. -She has received loading dose of ASA and heparin gtt - continue to monitor on telemetry. Cardiac catheterization planned today to evaluate cardiac perfusion - (2) Carotid arterial disease Current Visit: Yes Status: Chronic Assessment and Plan: s/p endarterectomy left side due to mild stroke it seemed to have caused. -No acute intervention needed as she is getting outpatient follow up. (3) Hypertensive emergency Current Visit: Yes Status: Acute Assessment and Plan: . She was presented with very high Blood pressure 243/135 , chest pain with slightly elevated troponin, EKG not suggestive of ischemia -Will will monitor closely. She is on diltiazyme, clonodine and losartan Her latest by : 157/79 reduced gradually from 191/95 (4) Hypothyroid Current Visit: Yes Status: Chronic Assessment and Plan: Currently on 88mcg daily of levothyroxine. TSH is 2.342 She is asymptomatic - Time Spent with Patient Total time spent is greater than 50% in coordination of care (as documented) at patient's floor/unit and/or counseling patient: Internal Medicine: Result - Labs CBC & Chem 7: 04/20/18 02:24 04/20/18 02:24 Labs: Short CBC 04/20/18 Range/Units 02:24 WBC 7.2 (4.3-11.1) K/mcL Hgb 13.1 (11.5-15.4) g/dL Hct 39.4 (35.3-44.9) % Plt Count 222 (140-400) K/mcL Neutrophils # 4.5 (1.6-8.9) K/mcL BMP 04/20/18 02:24 Sodium 138 Potassium 3.6 Chloride 102 Carbon Dioxide 27 BUN 12 Creatinine 0.51 L Glucose 113 H Calcium 9.8 Cardiac Enzymes 04/20/18 04/20/18 Range/Units 02:24 08:08 Troponin I 1.81 H* 1.36 H* (< 0.04) ng/mL - ABG Interpretation ABG results: PT/INR, D-dimer PT 11.5 Seconds (9.4-12.1) 04/19/18 20:11 Consult Discharge Plan - Plan Referrals: Kerry Castrejon CNP [Advanced Practice Nurse] - 04/26/18 2:15 pm () Krissy Oviedo MD [Partnered Physician] - (office will call patient with follow up appointment) <Aldo Amador - Last Filed: 04/20/18 16:55> Hospitalist Progress Note - Encounter Date of Encounter: 04/20/18 - Exam Vitals: Temp Pulse Resp BP Pulse Ox 96.7 F L 57 18 125/73 94 04/20/18 12:29 04/20/18 12:29 04/20/18 12:29 04/20/18 12:29 04/20/18 12:29 - Assessment and Plan (1) NSTEMI (non-ST elevated myocardial infarction) Current Visit: Yes Status: Acute (2) Hypertensive emergency Current Visit: Yes Status: Acute (3) Carotid arterial disease Current Visit: Yes Status: Chronic (4) Hypothyroid Current Visit: Yes Status: Chronic (5) Coronary artery disease Current Visit: Yes Status: Chronic (6) Tobacco abuse Current Visit: Yes Status: Chronic - Time Spent with Patient Total time spent is greater than 50% in coordination of care (as documented) at patient's floor/unit and/or counseling patient: Internal Medicine: Result - Labs CBC & Chem 7: 04/20/18 02:24 04/20/18 02:24 Labs: Short CBC 04/20/18 Range/Units 02:24 WBC 7.2 (4.3-11.1) K/mcL Hgb 13.1 (11.5-15.4) g/dL Hct 39.4 (35.3-44.9) % Plt Count 222 (140-400) K/mcL Neutrophils # 4.5 (1.6-8.9) K/mcL BMP 04/20/18 02:24 Sodium 138 Potassium 3.6 Chloride 102 Carbon Dioxide 27 BUN 12 Creatinine 0.51 L Glucose 113 H Calcium 9.8 Cardiac Enzymes 04/20/18 04/20/18 Range/Units 02:24 08:08 Troponin I 1.81 H* 1.36 H* (< 0.04) ng/mL - ABG Interpretation ABG results: PT/INR, D-dimer PT 11.5 Seconds (9.4-12.1) 04/19/18 20:11 - Attending Attestation I examined this patient and my medical decision-making was reviewed with the Resident Physician on 04/20/18. I agree with the documented findings, disposition and treatment plan as described except to the extent set forth below. Ms Rincon is currently in observation for HTN emergency and CAD. She is s/p LHC with stent. She remains moderate to high risk due to potential for worsening clinical status. Ms Rincon feels OK. She is breathing OK and has no pain. She is s/p C with stent. No fever or chills. No GI issues. Family at bedside. Exam alert Comfortable Mucus membranes dry Heart reg Lungs clear at this time Abd soft and nontender No edema No rash I/P 1. CAD s/p stent 2. HTN emergency - BP better controlled now Further diagnoses and plan as above. Anticipate d/c tomorrow. <Garett Lyon P - Last Filed: 04/20/18 11:20> (2) Carotid arterial disease Qualifiers: Carotid artery disease type: occlusion Laterality: right Qualified Code(s): I65.21 - Occlusion and stenosis of right carotid artery (4) Hypothyroid Qualifiers: Hypothyroidism type: acquired Qualified Code(s): E03.9 - Hypothyroidism, unspecified <Aldo Amador - Last Filed: 04/20/18 16:55> (3) Carotid arterial disease Qualifiers: Carotid artery disease type: occlusion Laterality: right Qualified Code(s): I65.21 - Occlusion and stenosis of right carotid artery (4) Hypothyroid Qualifiers: Hypothyroidism type: acquired Qualified Code(s): E03.9 - Hypothyroidism, unspecified (5) Coronary artery disease Qualifiers: Coronary Disease-Associated Artery/Lesion type: [place] artery [place] vs. transplanted heart: [place] heart Associated angina: without angina Qualified Code(s): I25.10 - Atherosclerotic heart disease of [place] coronary artery without angina pectoris
[2018-04-20] MEDS ORDERED: *HR* Heparin 10,000 UNIT/10 ML VIAL ONE (10:23)
[2018-04-20] MEDS ORDERED: Nitroglycerin 1,000 MCG/10 ML VIAL IV ONE (10:23)
[2018-04-20] MEDS ORDERED: ISOVUE-370 200 ML INFUS..BTL IV ONE ×2 (10:23→11:12)
[2018-04-20] MEDS ORDERED: 0.9 % Sodium Chloride 1,000 ML ONE ×2 (10:23→10:45)
[2018-04-20] MEDS ORDERED: Heparin 1,000 UNITS/500 mL 500 ML ONE (10:23)
[2018-04-20] MEDS ORDERED: *HR* Midazolam HCl 2 MG/2 ML VIAL ONE ×2 (10:45→11:20)
[2018-04-20] MEDS ORDERED: *HR* FentaNYL (PF) 100 MCG/2 ML VIAL ONE (10:45)
--- NOTE | 2018-04-20 10:51 | Pre-Sedation Evaluation ---
Pre-sedation evaluation - Pre-sedation checklist Date of procedure: 04/20/18 Procedure: heart cath Recent Vitals: Last Vital Signs Temp 97.9 F 04/20/18 05:26 Pulse 66 04/20/18 05:26 Resp 16 04/20/18 05:26 BP 157/79 04/20/18 05:26 Pulse Ox 97 04/20/18 05:26 H&P (including ROS) documented in medical record: Yes Previous reaction to sedatives/anesthetics: No Dietary Status: NPO after Midnight Airway Assessment: Patient can open mouth completely, TMJ function normal, Micrognathia (under-bite, receding chin) absent, Neck with adequate range of motion Dentition: dentures removed Possible difficult airway: No ASA Classification *see protocol: CLASS II-Mild systemic disease Plan of Care: Pt appropriate candidate for procedure/moderate/conscious sedation , Risks/benefits of procedure/sedation discussed w/ patient/family Cardiac Registry (Cardio Only) - Functional Capacity Functional Capacity: < 4 METS - Clincal Frailty Scale Clinical Frailty Scale: Vulnerable
[2018-04-20] MEDS ORDERED: *HR* Ticagrelor 90 MG TABLET ONE (11:42)
[2018-04-20] MEDS ORDERED: 0.9 % Sodium Chloride 1,000 ML IVC SCH (12:15)
--- NOTE | 2018-04-20 12:22 | Invasive Diagnostic Lab Proc ---
Name: Vilma Garza Date of Study: 04/20/2018 Date: 1940 Ht: 66.1in Medical Record#: [id number] Age: 77 Wt: 131.84lb Gender: Female BSA: 1.68 Order #: [id number] BMI: 21.21 Physicians Procedure Physician: Krissy Oviedo MD, [facility] Referring MD: Referring MD: Staff Name Position Time In DanielLorene RT (R) Monitor 10:49 AM [facility], Lorene RT (R) Scrub 10:49 AM Rhonda Gardiner RN Unit Assistant 10:49 AM Indications Indication Non-Stemi Procedures Performed Procedure L HRT ARTERY/VENTRICLE ANGIO PRQ CARD RUPERT STENT W/ANGIO 1 VSL Pre-Procedure Checklist Informed consent is complete signed and on chart. H&P is on chart. ID band is on and ID verified with patient. Patient NPO for procedure The procedure was described for the patient and questions were answered. Blood Pressure: 122/47 ECG is on chart. Plan of Care Patient will tolerate the procedure without complications. Adequate level of comfort will be maintained. Hemodynamics will remain stable Patient will recover from procedure without complications. Respiratory function will be maintained. Cardiac rhythm will remain stable. Patient temperature will be maintained. Patient and/or family have verbalized understanding of the procedure. Patient Education Chief Complaint/Reason for Test: Cardiac Cath Developmental Category: Geriatric (65+ years) Developmentally Appropriate for Age: Yes Learning Barriers: None Education Needs: Procedure Education Method: Verbal Information Taught: Cardiac Cath Educational Evaluation: Able to repeat information Intravenous Access Time IV Size Location DC'd Fluid/Drip Rate Units RN 10:28 AM 20g 1 /" Patent On Arrival Lt Antecubital 0.9NaCl 25 ml/hr Rhonda Gardiner RN Allergies Oxycodone Ergotamine Acetaminophen/Oxycodone Hydr codeine Caffeine/Ergotamine Tartrate Vital Signs Time BP (mmHg) HR (bpm) O2 Sat. RR (bpm) LOC 10:53 AM / % 5 = Fully awake and oriented or at pre-proc level 10:53 AM / % 4 = Oriented but drowsy 11:08 AM / % 4 = Oriented but drowsy 11:23 AM / % 4 = Oriented but drowsy 11:38 AM / % 4 = Oriented but drowsy 11:53 AM / % 5 = Fully awake and oriented or at pre-proc level 10:51 AM 122 / 47 77 97 % 14 10:55 AM 113 / 64 71 96 % 11 11:01 AM 90 / 53 62 97 % 16 11:07 AM 95 / 34 60 95 % 12 11:12 AM 93 / 57 61 96 % 13 11:18 AM 100 / 49 62 99 % 11 11:22 AM 90 / 43 59 98 % 9 11:27 AM 94 / 38 58 95 % 9 11:32 AM 90 / 43 56 95 % 9 11:38 AM 72 / 33 60 92 % 9 11:39 AM 84 / 48 60 91 % 9 11:43 AM 110 / 56 58 95 % 15 11:47 AM 99 / 54 56 95 % 18 11:52 AM 102 / 49 57 88 % 9 11:57 AM 88 / 55 58 96 % 9 12:03 PM 97 / 57 56 94 % 13 12:07 PM 101 / 58 55 99 % 10 12:12 PM 93 / 63 58 98 % 9 Procedural Medications Time Medication Dose Units Method Given By 10:53 AM Oxygen 2 L/min nasal cannula Rhonda Gardiner RN 10:53 AM Versed 2 mg Intravenous Rhonda Gardiner RN 10:53 AM Fentanyl 50 mcg Intravenous Rhonda Gardiner RN 11:02 AM Lidocaine 2% 16 ml Subcutaneous Krissy Oviedo MD, FACC 11:17 AM Angiomax 0.75mg/kg bolus: 9 ml Intravenous Rhonda Gardiner RN 11:18 AM Angiomax 1.75mg/kg/hr: 21 ml Intravenous Rhonda Gardiner RN 11:18 AM Versed 1 mg Intravenous Rhonda Gardiner RN 11:18 AM Fentanyl 25 mcg Intravenous Rhonda Gardiner RN 11:36 AM Nitroglycerin 200 mcg Intracoronary Krissy Oviedo MD, FACC 11:42 AM Brilinta 180 mg Orally Rhonda Gardiner RN ASA Classification: CLASS II- Mild systemic disease (i.e. well-controlled diabetes, hypertension, asthma, cigarette smoking) Carlie Score Preprocedure Postprocedure Activity 2- Moves 4 extremities sustained head lift Activity 2- Moves 4 extremities sustained head lift Circulation 2- SBP +/= 20 points of pre-anesthetic level Circulation 2- SBP +/= 20 points of pre-anesthetic level Consciousness 2- Awake and alert oriented x 3 Consciousness 2- Awake and alert oriented x 3 O2 Saturation 2- Able to maintain O2 satruation of 92% on room air O2 Saturation 2- Able to maintain O2 satruation of 92% on room air Respiratory 2- Able to deep breathe and cough well Respiratory 2- Able to deep breathe and cough well Total Score 10 Total Score 10 Contrast Agent: Isovue Diagnostic Contrast: 179 ml Total Contrast: 179 ml Fluoro Dose: 3664 mGy Procedure Log Time Note Enter By 10:49 AM Pt arrived to research laboratory technician 2 at 10:49 twilson 10:49 AM Physician arrived 10:49 twilson 10:49 AM Meet and greet completed twilson 10:49 AM Sign in performed according to hospital policy. twilson 10:49 AM Procedure start 10:49 twilson 10:49 AM Patient charges- Angio tray pack, Navilyst 3mm J, Pulse Oximetry and ACIST tubing and transducer twilson 10:49 AM Lorene Sanchez (R) Position: Monitor Time in: 10:49 twilson 10:49 AM Lorene Galvez (R) Position: Scrub Time in: 10:49 twilson 10:49 AM Rhonda Gardiner RN Position: Unit Assistant Time in: 10:49 twilson 10:49 AM Case Delayed no twilson 10:49 AM CathStat 10:50 AM Vitals capture started with the following parameters, Patient=Adult, Interval=5 min, Initial Gczwpglh=240 mmHg, Deflation Rate=5 mmHg, Cuff placed on Right Arm 10:51 AM HR=77 bpm, TYGR=939/47 mmhg, SpO2=97.0 %, Resp=14 B/min 10:[address] on right side of patient twilson 10:53 AM Hair removed from procedure site in procedure lab using clippers. Bilateral groin prepped with Chloraprep by Lorene Sanchez (R), then patient was draped. Skin intact. twilson 10:53 AM Time: :53 Oxygen on at 2 L/min per nasal cannula by Rhonda Gardiner RN twilson 10:53 AM Time: 10:53 Versed 2 mg Intravenous Given by Rhonda Gardiner RN twilson 10:53 AM Time: 10:53 Fentanyl 50 mcg Intravenous Given by Rhonda Gardiner RN twilson 10:53 AM Time: 10:53 Patient comfortable and pain free: Yes twilson 10:53 AM Time: 10:53LOC: 5 = Fully awake and oriented or at pre-proc level twilson 10:54 AM Recorded ECG: HR=77 Condition=Condition 1 10:55 AM Pressure channel 1 zeroed. 10:55 AM HR=71 bpm, RCMU=884/64 mmhg, SpO2=96.0 %, Resp=11 B/min 10:58 AM ASA Class CLASS II- Mild systemic disease (i.e. well-controlled diabetes, hypertension, asthma, cigarette smoking) twilson 11:01 AM Time out performed according to hospital policy twilson 11:01 AM HR=62 bpm, NIBP=90/53 mmhg, SpO2=97.0 %, Resp=16 B/min 11:02 AM Time: 11:02 16 ml Lidocaine 2% to right groin Subcutaneous Given by Krissy Oviedo MD, [facility] twilson 11:06 AM Attempting access right groin. twilson 11:06 AM Vitals capture stopped. 11:07 AM Vitals capture started with the following parameters, Patient=Adult, Interval=5 min, Initial Wsmgrzik=447 mmHg, Deflation Rate=5 mmHg, Cuff placed on Right Arm 11:07 AM 0.035 180cm VSI David-Torque wire [id number] twilson 11:07 AM HR=60 bpm, NIBP=95/34 mmhg, SpO2=95.0 %, Resp=12 B/min 11:08 AM Access obtained by percutaneous puncture. 5Fr 23cm [place] Ultimum sheath placed in right Femoral artery. [id number] twilson 11:08 AM Time: 10:53 Patient comfortable and pain free: Yes twilson 11:08 AM Time: 10:53LOC: 4 = Oriented but drowsy twilson 11:09 AM 5Fr FL 4 catheter inserted over the wire DNC twilson 11:09 AM Wire removed twilson 11:10 AM LCA angiography performed in multiple views. twilson 11:10 AM Recorded Pressure: Ao, HR=62, Condition=Condition 1 (Aorta) Ao 85/47/64 11:11 AM Recorded Pressure: Ao, HR=57, Condition=Condition 1 (Aorta) Ao 94/44/65 11:12 AM 0.035 260cm Navilyst 3mmJ wire [id number] twilson 11:12 AM Catheter removed twilson 11:12 AM HR=61 bpm, NIBP=93/57 mmhg, SpO2=96.0 %, Resp=13 B/min 11:13 AM 5Fr FR 4 catheter inserted over the wire DN twilson 11:13 AM Wire removed twilson 11:14 AM called bed management for a 2N bed twilson 11:14 AM RCA angiography performed in multiple views. twilson 11:14 AM Recorded Pressure: Ao, HR=68, Condition=Condition 1 (Aorta) Ao 101/58/78 11:14 AM Wire reinserted. twilson 11:14 AM Catheter removed twilson 11:15 AM PCI Status Urgent twilson 11:16 AM PCI lesion in Mid LAD. Pre Stenosis: 99 Pre KEITH Flow: 3: Complete and Brisk Flow/Perfusion twilson 11:16 AM PCI lesion in Mid LAD. twilson 11:17 AM Sheath exchanged for a 6 Fr 11 cm [employer] [place] sheath [id number] twilson 11:17 AM Inflation device was opened. twilson 11:18 AM Time: 11:17 Angiomax 0.75mg/kg bolus: 9 ml Intravenous Given by Rhonda Gardiner RN Mcguire pump twilson 11:18 AM HR=62 bpm, BIMG=803/49 mmhg, SpO2=99.0 %, Resp=11 B/min 11:18 AM Time: 11:18 Angiomax 1.75mg/kg/hr: 21 ml Intravenous Given by Rhonda Gardiner RN Mcguire pump twilson 11:18 AM Time: 11:18 Versed 1 mg Intravenous Given by [facility]onda [facility]iner [facility] [place] 11:18 AM Time: 11:18 Fentanyl 25 mcg Intravenous Given by Rhonda Gardiner RN twilson 11:19 AM Mid/Distal Left Anterior Descending Coronary Artery and diagonal branches with 99% stenosis. If graft is supplying this area, 0 % stenosis twilson 11:19 AM 6Fr XB LAD 3.5 [place] Bright-Tip guide catheter was used to cannulate the PCI vessel successfully. reused? No twilson 11:20 AM Wire removed, intact. twilson 11:20 AM patient will go to 2N4 when procedure is complete. twilson 11:20 AM Recorded Pressure: Ao, HR=60, Condition=Condition 1 (Aorta) Ao 112/45/70 11:21 AM .014 Prowater 180cm guide wire across target lesion- successful. reused? No twilson 11:22 AM HR=59 bpm, NIBP=90/43 mmhg, SpO2=98.0 %, Resp=9 B/min 11:23 AM Time: 11:08 Patient comfortable and pain free: Yes twilson 11:23 AM Time: 11:08LOC: 4 = Oriented but drowsy twilson 11:23 AM 2.0 mm x 12 mm Emerge Monorail balloon across target lesion- successful. reused? No twilson 11:25 AM Balloon inflated @ 14 deborah for 33 seconds twilson 11:26 AM Recorded Pressure: Ao, HR=59, Condition=Condition 1 (Aorta) Ao 81/41/58 11:27 AM Balloon inflated @ 14 deborah for 30 seconds twilson 11:27 AM Balloon catheter removed intact. twilson 11:27 AM HR=58 bpm, NIBP=94/38 mmhg, SpO2=95.0 %, Resp=9 B/min 11:27 AM Recorded Pressure: Ao, HR=59, Condition=Condition 1 (Aorta) Ao 108/43/67 11:28 AM Recorded Pressure: Ao, HR=61, Condition=Condition 1 (Aorta) Ao 109/44/68 11:29 AM 2.5 mm x 12 mm Emerge Monorail balloon across target lesion- successful. reused? No twilson 11:30 AM Balloon inflated @ 8 deborah for 30 seconds twilson 11:31 AM Balloon inflated @ 12 deborah for 23 seconds twilson 11:31 AM Recorded Pressure: Ao, HR=58, Condition=Condition 1 (Aorta) Ao 116/45/71 11:32 AM HR=56 bpm, NIBP=90/43 mmhg, SpO2=95.0 %, Resp=9 B/min 11:32 AM Recorded Pressure: Ao, HR=57, Condition=Condition 1 (Aorta) Ao 108/43/67 11:33 AM Balloon catheter removed intact. twilson 11:35 AM 2.5mm x 20mm Synergy drug-eluting stent across target lesion- successful Lot #[id number] twilson 11:35 AM Stent deployed @ 12 deborah for 30 seconds twilson 11:35 AM Stent delivery system removed intact. twilson 11:36 AM Time: 11:36 Nitroglycerin 200 mcg Intracoronary Given by Krissy Oviedo MD, FACC twilson 11:37 AM LCA angiography performed in multiple views. twilson 11:38 AM HR=60 bpm, NIBP=72/33 mmhg, SpO2=92.0 %, Resp=9 B/min 11:38 AM Guide wire removed intact. twilson 11:38 AM NIBP STAT measurement started. 11:38 AM Time: 11:23LOC: 4 = Oriented but drowsy twilson 11:38 AM Time: 11:23 Patient comfortable and pain free: Yes twilson 11:38 AM J-wire reinserted. twilson 11:39 AM Guide catheter removed intact. J-wire removed, intact. twilson 11:39 AM HR=60 bpm, NIBP=84/48 mmhg, SpO2=91.0 %, Resp=9 B/min 11:40 AM Bolus angiogram of right Femoral complete: 2 ml/sec for a total of 4 mls twilson 11:42 AM Time: 11:42 Brilinta 180 mg Orally Given by Rhonda Gardiner RN twilson 11:43 AM HR=58 bpm, XWEJ=028/56 mmhg, SpO2=95.0 %, Resp=15 B/min 11:43 AM Procedure completed at 11:43 04/20/2018 twilson 11:43 AM Did you address KEITH flow and Dominance? Yes twilson 11:44 AM Sign out completed: Radiation Dose 288.47 mGy, 3663.79 cGy/cm2 Fluoro Time: 11.2 Isovue 370 - 200ml contrast 179 ml given by Krissy Oviedo MD, [facility]. Complications: NoneCardiac Rehab Consult needed: YesConfirmed administered medications: Yes twilson 11:44 AM Isovue 370 - 200ml,1 Bottle(s) used. twilson 11:44 AM Arterial sheath pulled using manual compression and V+ Pad for 20 minutes by Lorene Galvez (R) twilson 11:44 AM Estimated Blood Loss: minimal twilson 11:44 AM Family placed in consult room. twilson 11:46 AM Information taught Cardiac Cath and PCI twilson 11:46 AM Education needs Procedure, Plan of Care, and Responsibilities of Patient in Care twilson 11:46 AM Learning barriers :None twilson 11:46 AM Education Methods Verbal twilson 11:46 AM Education evaluation Able to repeat information twilson 11:46 AM Plavix, Effient or Brilinta given Yes twilson 11:47 AM Angiomax off. twilson 11:47 AM HR=56 bpm, NIBP=99/54 mmhg, SpO2=95.0 %, Resp=18 B/min 11:49 AM Coronary Dominance: Co-dominant twilson 11:49 AM Lesion found in Mid RCA. Pre Stenosis: 40 Pre KEITH Flow: twilson 11:49 AM Right Coronary, Right Posterior Descending Arteries with Right Posterolateral and Acute Marginal branches with 40 % stenosis. If graft is supplying this area, 0 % stenosis twilson 11:49 AM Lesion found in Proximal LAD. Pre Stenosis: 40 Pre KEITH Flow: twilson 11:50 AM Proximal Left Anterior Descending Coronary Artery with 40% stenosis. If graft is supplying this territory, 0 % stenosis. twilson 11:50 AM Lesion found in Proximal Circumflex. Pre Stenosis: 30 Pre KEITH Flow: twilson 11:50 AM Lesion found in Mid Circumflex. Pre Stenosis: 30 Pre KEITH Flow: twilson 11:50 AM Circumflex, Obtuse Marginal, Left Posterior Descending, and Left Posterolateral Coronary Arteries with 30 % stenosis. If graft is supplying this area, 0 % stenosis twilson 11:52 AM HR=57 bpm, IUOO=663/49 mmhg, SpO2=88.0 %, Resp=9 B/min 11:53 AM Report given to Natalya CHAPA Pt taken to 2N Room #4. 11:53 twilson 11:53 AM Time: 11:38 Patient comfortable and pain free: Yes twilson 11:53 AM Time: 11:38LOC: 4 = Oriented but drowsy twilson 11:56 AM Delay to floor No twilson 11:56 AM 11:56 Post Pulses Bilateral DP & PT Doppler twilson 11:56 AM Post Blood Pressure 102/49 twilson 11:57 AM HR=58 bpm, NIBP=88/55 mmhg, SpO2=96.0 %, Resp=9 B/min 12:00 PM Marie Chowdhury RT holding pressure to relieve Lorene Sites RT. twilson 12:03 PM HR=56 bpm, NIBP=97/57 mmhg, SpO2=94.0 %, Resp=13 B/min 12:07 PM HR=55 bpm, BLNG=308/58 mmhg, SpO2=99.0 %, Resp=10 B/min 12:09 PM Time: 11:53LOC: 5 = Fully awake and oriented or at pre-proc level twilson 12:09 PM Time: 11:53 Patient comfortable and pain free: Yes twilson 12:12 PM manual pressure held for 30 minutes total. twilson 12:12 PM Site status No bleeding/hematoma - Rt Groin as reported by Marie Chowdhury RT (R) at 12:12 twilson 12:12 PM Opsite applied twilson 12:12 PM HR=58 bpm, NIBP=93/63 mmhg, SpO2=98.0 %, Resp=9 B/min 12:12 PM Vitals capture stopped. 12:14 PM Patient out of room: 12:14 twilson Complications Complication None Hemodynamics Pressures Site Systolic/A Wave Diastolic/V Wave Mean AO 85 47 64 AO 94 44 65 AO 101 58 78 AO 112 45 70 AO 81 41 58 AO 108 43 67 AO 109 44 68 AO 116 45 71 AO 108 43 67 Post Procedure Information Blood Pressure: 102/49 mmHg Post procedural instructions were given Closure Device Time Device Success/Fail 04/20/2018 11:46:00 AM Manual Compression Successful Site Checks Time Location Status Staff Sheath In? Note 12:12 PM Rt Groin No bleeding/hematoma Marie Chowdhury RT (R) Pulses Time Site Pre-Procedure Post-Procedure Note 04/20/2018 10:48:00 AM Bilateral DP & PT Doppler 04/20/2018 10:48:00 AM Bilateral radial 2+ 11:56:00 AM Bilateral DP & PT Doppler Updated by Lorene Sanchez RT (R) on 04/20/2018 12:15:05 PM electronically signed on 04/20/2018 12:15:35 PM with status of Final
[2018-04-20] MEDS ORDERED: *HR* Bivalirudin 250 MG VIAL IVC ONE (12:44)
--- NOTE | 2018-04-20 17:22 | Electrocardiograph Report ---
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
--- NOTE | 2018-04-20 17:28 | Electrocardiograph Report ---
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
--- NOTE | 2018-04-20 17:28 | Electrocardiograph Report ---
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
--- NOTE | 2018-04-20 17:29 | Electrocardiograph Report ---
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
[2018-04-21 05:05] LABS: Hematocrit 32.2 % (35.3-44.9)
[2018-04-21 05:06] LABS: Hemoglobin 10.4 g/dL (11.5-15.4)
[2018-04-21 05:24] LABS: BUN/Creatinine Ratio 18 (6-26); Blood Urea Nitrogen 14 mg/dL (8-23); eGFR For Non-African Americans > 60 (> 60)
[2018-04-21 05:41] LABS: Troponin I 0.83 ng/mL (< 0.04)
--- NOTE | 2018-04-21 07:16 | Cardiology Progress Note ---
Date of Encounter: 04/21/18 Time of Encounter: 07:13 Assessment and Plan (1) NSTEMI (non-ST elevated myocardial infarction) Current Visit: Yes Status: Acute Troponins 0.18, 1.81, 1.36, 0.83. EKG anterior ischemia. S/P LHC yesterday with severe single vessel CAD--s/p PTCA/RUPERT to mLAD. Chest pain free overnight. TTE pending. DAPT (ASA and Plavix) uninterrupted x 1 year. Pt verbalizes understanding. Continue BB and statin--will switch statin to higher intensity--Lipitor 40mg daily. Right femoral access site healing well. No bleeding or hematoma noted. Mild ecchymosis. PAD of RLE noted during LHC yesterday. Per pt, she was previously aware one of her lower extremities had a 100% blockage. She denies LE pain or numbness. HGB 13.1 yesterday, 10.4 today. Denies active bleeding. Will recheck HGB later this AM. Cardiology signing off. Reconsult PRN. Will coordinate outpt follow-up in 1 week. (2) Abnormal chest CT Current Visit: Yes Status: Acute Chest CT Multiple asymmetric lymph nodes in the right axillary region. Follow- up is recommended. Recommend addressing/management per primary team. (3) Bradycardia Current Visit: Yes Status: Acute 12 hr tele AVG HR 51, SR. Pt asymptomatic. Denies dizziness or lightheadedness. BB was started yesterday--Lopressor 25mg BID. Home med included Cardizem CD 360mg daily for BP control. Will stop Cardizem and switch to Norvasc. Discussion w patient/family: The assessment and plan as outlined above was discussed with the patient and/or family members who expressed understanding and agreement. All questions were answered. Thank you for involving us in the care of your patient. Please call with any questions. I will discuss all the above with Dr. Calix and make changes as necessary. Subjective Principal diagnosis: NSTEMI Interval history: S/P LHC yesterday for NSTEMI. Severe 1 vessel CAD--successful PTCA/RUPERT to mLAD. TTE pending. HGB 10.4 today, was 13.1 yesterday--denies active bleeding. Pt denies chest pain or dyspnea overnight. Objective Vital Signs, Last 4 Hours Temp Pulse Resp BP Pulse Ox 04/21/18 06:55 97.7 F 63 16 151/65 94 04/21/18 04:48 97.6 F 52 18 112/48 95 Vital Signs Temp Pulse Resp BP Pulse Ox 04/21/18 06:55 97.7 F 63 16 151/65 94 04/21/18 04:48 97.6 F 52 18 112/48 95 04/20/18 23:13 97.8 F 54 19 142/62 95 04/20/18 19:42 98.3 F 62 17 139/58 96 04/20/18 17:30 53 133/79 04/20/18 16:54 97.6 F 56 16 123/85 97 04/20/18 16:30 56 135/72 04/20/18 15:30 57 130/72 04/20/18 14:30 57 129/65 04/20/18 14:00 59 123/77 04/20/18 13:30 60 141/69 04/20/18 13:10 55 144/68 04/20/18 12:55 51 137/63 04/20/18 12:40 55 132/68 04/20/18 12:29 96.7 F L 57 18 125/73 94 04/20/18 12:25 96 125/73 Intake and Output 04/20/18 04/20/18 04/21/18 15:59 23:59 07:59 Output Total 300 / 300 Balance -300 / -300 Output: Urine 300 / 300 Other: Meal Dinner Percent of Meal Consumed 10% Weight 60.3 kg Patient Weight 04/21/18 23:59 Weight 60.3 kg General: Conversant, No Apparent Distress HEENT: Atraumatic, Normocephaly, Mucus Membranes Moist Neck: No JVD, Normal carotid pulses Cardiac: Reg Rate and Rhythm, Normal S1 and S2, No Murmur Lungs: Normal Breath Sounds, No Wheeze, Rales, Rhonchi Neuro: Alert and responsive, No focal deficits noted Abdomen: Soft, Non-Tender Skin: Other (right femoral access site healing well. No bleeding, hematoma or ecchymosis noted.) Musculoskeletal: No Chest Wall Tenderness Extremities: No Clubbing, No Cyanosis, No Edema, Normal Pulses Results 04/21/18 04:26 04/21/18 04:26 Lab Results 04/21/18 04/21/18 04:26 04:26 Hgb 10.4 L D Hct 32.2 L Plt Count 196 BUN 14 Creatinine 0.77 Troponin I 0.83 H* Short CBC 04/21/18 Range/Units 04:26 Hgb 10.4 L D (11.5-15.4) g/dL Hct 32.2 L (35.3-44.9) % Plt Count 196 (140-400) K/mcL BMP 04/21/18 Range/Units 04:26 BUN 14 (8-23) mg/dL Creatinine 0.77 (0.60-1.20) mg/dL Cardiac Enzymes 04/21/18 04/20/18 Range/Units 04:26 08:08 Troponin I 0.83 H* 1.36 H* (< 0.04) ng/mL Active Medications Hydrocodone Bitart/Acetaminophen ([place] 5-325 Mg) 1 tab PO DAILY PRN PRN Reason: mild to moderate pain Stop: 10/19/18 23:08 Last Admin: 04/20/18 19:56 Dose: 1 tab Aspirin (Aspirin) 81 mg PO DAILY [facility] Stop: 10/20/18 09:01 Last Admin: 04/20/18 08:56 Dose: 81 mg Clonidine HCl (Clonidine Hcl) 0.2 mg PO BID [facility] Stop: 10/20/18 09:01 Last Admin: 04/20/18 19:56 Dose: 0.2 mg Clopidogrel Bisulfate (Plavix) 75 mg PO DAILY [facility] Stop: 10/21/18 09:01 Diltiazem HCl (Cardizem Cd) 360 mg PO DAILY [facility] Stop: 10/20/18 09:01 Last Admin: 04/20/18 08:57 Dose: 360 mg Hydroxyzine Pamoate (Hydroxyzine Pamoate) 50 mg PO Q6H PRN PRN Reason: Anxiety Levothyroxine Sodium (Synthroid) 88 mcg PO 0630 [facility] Stop: 10/20/18 06:31 Last Admin: 04/21/18 05:45 Dose: 88 mcg Losartan Potassium (Cozaar) 50 mg PO DAILY [facility] Stop: 10/20/18 09:01 Last Admin: 04/20/18 08:56 Dose: 50 mg Magnesium Oxide (Mag-Ox) 400 mg PO DAILY [facility] PRN Reason: Protocol Stop: 10/20/18 09:01 Last Admin: 04/20/18 09:06 Dose: Not Given Metoprolol Tartrate (Lopressor) 25 mg PO BID [facility] Stop: 10/20/18 10:31 Last Admin: 04/20/18 19:56 Dose: 25 mg Nitroglycerin (Nitroglycerin) 0.4 mg SL Q5MIN PRN PRN Reason: Chest Pain Stop: 10/19/18 19:35 Last Admin: 04/19/18 21:14 Dose: 0.4 mg Potassium Chloride (Potassium Chloride) 10 meq PO DAILY [facility] Stop: 10/20/18 09:01 Last Admin: 04/20/18 08:57 Dose: 10 meq Simvastatin (Zocor) 10 mg PO HS [facility] Stop: 10/20/18 21:01 Last Admin: 04/20/18 19:56 Dose: 10 mg Vitamin D (Vitamin D) 1,000 unit PO DAILY [facility] Stop: 10/20/18 09:01 Last Admin: 04/20/18 08:57 Dose: 1,000 unit - Imaging and Cardiology Echo: pending Cardiac cath: report reviewed - EKG Interpretation EKG results cardiology: other (12 hr tele AVG HR 51, SR) Consult Discharge Plan - Plan Additional Instructions: RISK FACTORS: STOP SMOKING: If you smoke, STOP. Smoking or tobacco use significantly increases your risk of heart disease because nicotine causes the arteries to narrow or constrict. It also causes fats to stick to the artery. Your chances of having a heart attack are greatly increased if you continue to smoke. For more information, call the education line for smoking cessation 0-026-YNPNYBK EAT A LOW FAT/CHOLESTEROL/SODIUM DIET: This diet may help reduce your chances of having a heart attack. LIFTING: Avoid lifting anything more than 10 pounds for 5-7 days Prior to straining, laughing, sneezing and/or coughing, apply manual pressure directly over insertion site. ACTIVITY: You may walk or climb stairs as tolerated You can resume sexual activity as tolerated In general, you are encouraged to engage in a minimum of 30 minutes or more of moderate intensity physical activity, such as brisk walking, daily or at least 3 -4 times weekly BATHING Do not submerge the site into water (bath tub, hot tub, swimming pool) for 1 week. This can be a source for infection into the blood stream. You may shower after 24 hours SITE CARE: After 24 hours, you may remove the dressing and leave the site open to air. Keep the site clean and dry. Clean gently and pat dry. You can expect bruising and tenderness that gradually resolve within a week or two. Return to work as instructed per your physician Resume driving as instructed per physician Keep all scheduled follow up appointments Resume medications as instructed IMPORTANT: If prescribed a Platelet Aggregation Inhibitor such as, Plavix, Brilinta or Effient: Duration of therapy is minimum one year These medications are often used in combination with Aspirin in prevention of future heart attacks Never discontinue unless consult with your Water Team Leader STROKE (CVA) Risk factors for a stroke are: Age, cigarette smoking, diabetes, excessive alcohol consumption, family history, high blood pressure, overweight, physical inactivity, prior stroke, heart attack, diagnosis of carotid artery stenosis or other artery disease. Warning signs: Sudden numbness or weakness of the face, arm or leg; especially on one side of the body, sudden confusion, trouble speaking or understanding, sudden trouble seeing in one or both eyes, sudden trouble walking, dizziness, loss of balance or coordination, sudden severe headache with no cause. Call 911 or go to the Emergency Room. CONGESTIVE HEART FAILURE: If you have been diagnosed with Congestive Heart Failure (CHF) and your symptoms return, make an appointment with your physician Weigh yourself daily. Notify your physician if you have a weight gain of two or more pounds in one day or five or more pounds in one week. If you experience any difficulty breathing, please call 911 BLEEDING: Although the risk of bleeding is minimal, it can happen. If you have any bleeding from the site, apply firm pressure above the puncture site for 10-15 minutes. If the bleeding does not stop, continue manual pressure and call 911 Contact your physician if: You develop a fever greater than 101 degrees Fahrenheit Your site becomes reddened or has any drainage You have an increase in pain or burning at the site or if a large knot forms at the site. If you experience chest pain, shortness of breath, dizziness, or extreme tiredness, stop the activity and rest. Please notify your physicians office if you experience any of these symptoms and they are not relieved by rest please call 911! Referrals: Kerry Castrejon CORROSION ENGINEER [Advanced Practice Nurse] - 04/26/18 2:15 pm () Krissy Oviedo MD [Partnered Physician] - (office will call patient with follow up appointment)
[2018-04-21] MEDS: Aspirin 81 MG TAB.CHEW PO SCH (08:18)
[2018-04-21] MEDS: Magnesium Oxide 400 MG TABLET PO SCH (08:18)
[2018-04-21] MEDS: cloNIDine HCl 0.1 MG TABLET PO SCH (08:18)
[2018-04-21] MEDS: Cholecalciferol (D-3) 1,000 UNIT TABLET PO SCH (08:19)
[2018-04-21] MEDS ORDERED: amLODIPine 5 MG TABLET PO SCH (09:00)
[2018-04-21 09:09] LABS: Hematocrit 37.1 % (35.3-44.9); Hemoglobin 11.9 g/dL (11.5-15.4)
--- NOTE | 2018-04-21 10:42 | Internal Med Progress Note ---
Date of Encounter: 04/21/18 Time of Encounter: 10:15 - Assessment and plan (1) NSTEMI (non-ST elevated myocardial infarction) Current Visit: Yes Status: Acute (2) Carotid arterial disease Current Visit: Yes Status: Chronic Qualifiers: Carotid artery disease type: occlusion Laterality: right Qualified Code(s ): I65.21 - Occlusion and stenosis of right carotid artery (3) Hypertensive emergency Current Visit: Yes Status: Acute (4) Hypothyroid Current Visit: Yes Status: Chronic Qualifiers: Hypothyroidism type: acquired Qualified Code(s): E03.9 - Hypothyroidism, unspecified - Subjective Interval history: Today is 2nd day of admission. She is 77 year old with a history of poorly controlled-hypertension with antihypertensive medication hyperlipidemia, carotid artery disease s/p left endarterectomy after stroke almost 4 years back and arthritis presented to [facility] emergency with complaining of acute onset of chest pain pressure-like pain commenced at approximately 3 AM while she was asleep. She stated that she forgot to take anti hypertensive medication the night before The pain was 5-6/10, not radiating t neck and left shoulder, associated with mild nausea, but no vomiting. She felt dizzy , palpitaation and headache ,at that time. Her blood pressure was taken by her [id number] at home was BP 243/135mmHg. In ED the blood pressure with systolic above 200 . Her EKG was not suggestive of infaction or ischaemia ,a CT chest/abdomen was done which ruled out dissection but showed extensive vascular calcification disease. Her troponin was mildly elevated 0.18 She was also given SL nitrogycerine and 0.2mg of clonidine which she takes at home. Her chest pain gradually decreased and started feeling more comfortable. She was admitted for observation and further cardiac monitoring and work up. Today she is very much stable, chest pain is 0/10 right now.No heaadche, no palpitation, She has constipation Her Vitals: BP 157/79, pul 66-75, tem 97.9 F. Her recent lab troponin 1.81- 1.36 - (0.83 today) .She is on 4 anti HTN medication , clonodine, amlodipine ,Losartan, metoprolol She was undergone left heart catheterization and there was 99% stenosis of Mid LAD and drug eluting stent was placed . Today she has sinus bradycardia pulse 52- 58-62 ( cadiazyme is on hold ) , BP 151/65 , sat 94% . Her Hb - 10.4 , Hct -31.2 , platelets -196 , BUN- 14, creatinine - 0.77 . We will closely monitor her for slow heart rate ad will discharge tomorrow if everythings is stable. - Constitutional Vitals: Temp Pulse Resp BP Pulse Ox 97.7 F 63 16 151/65 94 04/21/18 08:20 04/21/18 08:20 04/21/18 08:20 04/21/18 08:20 04/21/18 08:20 Internal Medicine: Result - Labs CBC & Chem 7: 04/21/18 08:38 04/21/18 04:26 Labs: Short CBC 04/21/18 04/21/18 Range/Units 04:26 08:38 Hgb 10.4 L D 11.9 D (11.5-15.4) g/dL Hct 32.2 L 37.1 (35.3-44.9) % Plt Count 196 (140-400) K/mcL BMP 04/21/18 04:26 BUN 14 Creatinine 0.77 Cardiac Enzymes 04/21/18 Range/Units 04:26 Troponin I 0.83 H* (< 0.04) ng/mL - ABG Interpretation ABG results: PT/INR, D-dimer PT 11.5 Seconds (9.4-12.1) 04/19/18 20:11 Consult Discharge Plan - Plan Instructions: Atorvastatin (By mouth), Myocardial Infarction (DC), Chest Pain ( DC), Coronary Intravascular Stent Placement (DC), Chronic Hypertension (DC), Coronary Intravascular Stent Placement, Diamond Sawer (GEN) Additional Instructions: RISK FACTORS: STOP SMOKING: If you smoke, STOP. Smoking or tobacco use significantly increases your risk of heart disease because nicotine causes the arteries to narrow or constrict. It also causes fats to stick to the artery. Your chances of having a heart attack are greatly increased if you continue to smoke. For more information, call the education line for smoking cessation 3-842-AIRZPUM EAT A LOW FAT/CHOLESTEROL/SODIUM DIET: This diet may help reduce your chances of having a heart attack. LIFTING: Avoid lifting anything more than 10 pounds for 5-7 days Prior to straining, laughing, sneezing and/or coughing, apply manual pressure directly over insertion site. ACTIVITY: You may walk or climb stairs as tolerated You can resume sexual activity as tolerated In general, you are encouraged to engage in a minimum of 30 minutes or more of moderate intensity physical activity, such as brisk walking, daily or at least 3 -4 times weekly BATHING Do not submerge the site into water (bath tub, hot tub, swimming pool) for 1 week. This can be a source for infection into the blood stream. You may shower after 24 hours SITE CARE: After 24 hours, you may remove the dressing and leave the site open to air. Keep the site clean and dry. Clean gently and pat dry. You can expect bruising and tenderness that gradually resolve within a week or two. Return to work as instructed per your physician Resume driving as instructed per physician Keep all scheduled follow up appointments Resume medications as instructed IMPORTANT: If prescribed a Platelet Aggregation Inhibitor such as, Plavix, Brilinta or Effient: Duration of therapy is minimum one year These medications are often used in combination with Aspirin in prevention of future heart attacks Never discontinue unless consult with your Farm Appraiser STROKE (CVA) Risk factors for a stroke are: Age, cigarette smoking, diabetes, excessive alcohol consumption, family history, high blood pressure, overweight, physical inactivity, prior stroke, heart attack, diagnosis of carotid artery stenosis or other artery disease. Warning signs: Sudden numbness or weakness of the face, arm or leg; especially on one side of the body, sudden confusion, trouble speaking or understanding, sudden trouble seeing in one or both eyes, sudden trouble walking, dizziness, loss of balance or coordination, sudden severe headache with no cause. Call 911 or go to the Emergency Room. CONGESTIVE HEART FAILURE: If you have been diagnosed with Congestive Heart Failure (CHF) and your symptoms return, make an appointment with your physician Weigh yourself daily. Notify your physician if you have a weight gain of two or more pounds in one day or five or more pounds in one week. If you experience any difficulty breathing, please call 911 BLEEDING: Although the risk of bleeding is minimal, it can happen. If you have any bleeding from the site, apply firm pressure above the puncture site for 10-15 minutes. If the bleeding does not stop, continue manual pressure and call 911 Contact your physician if: You develop a fever greater than 101 degrees Fahrenheit Your site becomes reddened or has any drainage You have an increase in pain or burning at the site or if a large knot forms at the site. If you experience chest pain, shortness of breath, dizziness, or extreme tiredness, stop the activity and rest. Please notify your physicians office if you experience any of these symptoms and they are not relieved by rest please call 911! Referrals: Kerry Castrejon CNP [Advanced Practice Nurse] - 04/26/18 2:15 pm () Krissy Oviedo MD [Partnered Physician] - (office will call patient with follow up appointment)
[2018-04-21 11:40] VITALS: BP 119/57
--- NOTE | 2018-04-21 11:45 | Discharge Summary ---
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 -She has received loading dose of ASA and heparin gtt Cardiac catheterization done on 04/20/2018 : Mid LAD 99% stenosis ,stent placed Today patient has no pain at all . Her heart rate 62/ minutes now (2) Carotid arterial disease Priority: Secondary Status: Chronic Comments: s/p endarterectomy left side due to mild stroke it seemed to have caused. -No acute intervention needed as she is getting outpatient follow up. Qualifiers: Carotid artery disease type: occlusion Laterality: unspecified laterality Qualified Code(s): I65.29 - Occlusion and stenosis of unspecified carotid artery (3) Hypertensive emergency Priority: Primary Status: Acute Comments: She was presented with very high Blood pressure 243/135 , chest pain with slightly elevated troponin, EKG not suggestive of ischemia She is on clonodine, losartan, metoprolol and amlodipine Her latest by : 157/79 reduced gradually from 151/65 We have stopped Cardiazyme (4) Hypothyroid Priority: Secondary Status: Chronic Comments: Her recent TSH level is 2.342 Recently she is not symptomatic Qualifiers: Hypothyroidism type: acquired Qualified Code(s): E03.9 - Hypothyroidism, unspecified Hospital course: She is 77 year old with a history of poorly controlled-hypertension with antihypertensive medication hyperlipidemia, carotid artery disease s/p left endarterectomy after stroke almost 4 years back and arthritis presented to [facility] emergency with complaining of acute onset of chest pain pressure-like pain commenced at approximately 3 AM while she was asleep. She stated that she forgot to take anti hypertensive medication the night before The pain was 5-6/10 , not radiating t neck and left shoulder, associated with mild nausea, but no vomiting. She felt dizzy , palpitation and headache ,at that time. Her blood pressure was taken by her [id number] at home was BP 243/135mmHg. In ED the blood pressure with systolic above 200 . Her EKG was not suggestive of infarction or ischaemia ,a CT chest/abdomen was done which ruled out dissection but showed extensive vascular calcification disease. Her troponin was mildly elevated 0.18 She was also given SL nitrogycerine and 0.2mg of clonidine which she takes at home. Her chest pain gradually decreased and started feeling more comfortable. She was admitted for observation and further cardiac monitoring and work up. Today she is very much stable, chest pain is 0/10 right now.No headache, no palpitation, She has constipation Her Vitals: BP 157/79, pul 66-75, tem 97.9 F. Her recent lab troponin 1.81- 1.36 - (0.83 today) .She is on 4 anti HTN medication , clonodine, amlodipine ,Losartan, metoprolol She was undergone left heart catheterization and there was 99% stenosis of Mid LAD and drug eluting stent was placed . Today she has sinus bradycardia pulse 52- 58-62 ( cadiazyme is on hold ) , BP 151/65 , sat 94% . Her Hb - 10.4 , Hct -31.2 , platelets -196 , BUN- 14, creatinine - 0.77 . She is insisting to go home and we are planning to discharge her as she is Hemodynamically stable with bradycardia. We have stopped Diltiazyme . We have counselled her about slow hear rate . - Time Spent with Patient Total time spent providing and/or coordinating discharge services: - Discharge Medications Prescriptions: amLODIPine [Norvasc] 5 mg PO DAILY #30 tablet Atorvastatin [Lipitor] 40 mg PO HS #30 tablet Clopidogrel [Plavix] 75 mg PO DAILY #30 tablet Metoprolol Tartrate 25 mg PO BID #60 tablet Home Medications: Acetaminophen/Diphenhydramine [Acetaminophen Pm Caplet] 2 tab PO HS 10/09/16 [ History] Cholecalciferol (D-3) [Vitamin D] 1,000 unit PO DAILY 10/09/16 [History] HYDROcodone/Acet 5/325 mg [[place]av[place] 5-325 mg] 1 tab PO BID PRN 10/09/16 [History] Levothyroxine [Synthroid] 88 mcg PO DAILY 10/09/16 [History] hydrOXYzine HCl [Hydroxyzine HCl] 50 mg PO HS 10/09/16 [History] L. Acidophilus/Pectin, [place] [Acidophilus Probiotic Capsule] 1 cap PO DAILY [History] cloNIDine HCl [CloNIDine HCl] 0.2 mg PO BID 10/22/16 [History] Aspirin 81 mg PO DAILY 365 Days tab.chew 12/06/17 [Rx] Cyanocobalamin (Vitamin B-12) [Vitamin B12] 1,000 mcg PO DAILY 04/19/18 [History ] Olmesartan Medoxomil 20 mg PO DAILY 04/19/18 [History] Atorvastatin [Lipitor] 40 mg PO HS #30 tablet 04/21/18 [Rx] Clopidogrel [Plavix] 75 mg PO DAILY #30 tablet 04/21/18 [Rx] Magnesium Oxide [Mag-Ox] 400 mg PO DAILY tablet 04/21/18 [Rx] Metoprolol Tartrate 25 mg PO BID #60 tablet 04/21/18 [Rx] Potassium Chloride 10 meq PO DAILY tab.er.prt 04/21/18 [Rx] amLODIPine [Norvasc] 5 mg PO DAILY #30 tablet 04/21/18 [Rx] Allergies/Adverse Reactions: 3 Allergy/AdvReac Type Severity Reaction Status Date / Time acetaminophen [From Percocet] AdvReac Nausea Verified 04/19/18 21:02 caffeine [From Cafergot] AdvReac Swelling Verified 04/21/18 08:12 of Lip/Tongue/Throat codeine AdvReac Rash Verified 04/19/18 21:02 Ergotamine [From Cafergot] AdvReac Swelling Verified 04/19/18 21:02 of Lip/Tongue/Throat Oxycodone [From Percocet] AdvReac Swelling Verified 04/19/18 21:02 of Lip/Tongue/Throat Date of admission: 04/20/18 19:07 Primary care physician: Barry Ro, DO - Constitutional Vitals: Temp Pulse Resp BP Pulse Ox 97.7 F 63 16 151/65 94 04/21/18 08:20 04/21/18 08:20 04/21/18 08:20 04/21/18 08:20 04/21/18 08:20 General appearance: Present: cooperative, A&O X 3, pleasant, answers questions appropriately Exam: Vitals: BP 151/65 , pulse : 62/ minutes, sat 94% , RR 16 General: Well-developed elderly female lying in bed comfortably in no acute distress Skin: No lesions or ulcers HEENT: Moist mucous membranes. No conjunctivae pallor. Neck: No lymphadenopathy. No JVD. No carotid bruits. No palpable thyroid. Chest: Normal thoracic expansion. Normal breath sounds. Clear to auscultation. Heart: Normal S1 & S2; rhythmic. No rubs or murmurs. Abdomen: Non-distended, soft and non-tender to palpation. No peritoneal reaction.no organomegaly Extremities: No clubbing, cyanosis or edema. No calf tenderness. Normal distal pulses. Neurological: Awake, alert and oriented to person, place and time. No focal deficits. 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 Smoking or tobacco use significantly increases your risk of heart disease because nicotine causes the arteries to narrow or constrict. It also causes fats to stick to the artery. Your chances of having a heart attack are greatly increased if you continue to smoke. For more information, call the education line for smoking cessation 8-717-DMXHLAW EAT A LOW FAT/CHOLESTEROL/SODIUM DIET: This diet may help reduce your chances of having a heart attack. LIFTING: Avoid lifting anything more than 10 pounds for 5-7 days Prior to straining, laughing, sneezing and/or coughing, apply manual pressure directly over insertion site. ACTIVITY: You may walk or climb stairs as tolerated You can resume sexual activity as tolerated In general, you are encouraged to engage in a minimum of 30 minutes or more of moderate intensity physical activity, such as brisk walking, daily or at least 3 -4 times weekly BATHING Do not submerge the site into water (bath tub, hot tub, swimming pool) for 1 week. This can be a source for infection into the blood stream. You may shower after 24 hours SITE CARE: After 24 hours, you may remove the dressing and leave the site open to air. Keep the site clean and dry. Clean gently and pat dry. You can expect bruising and tenderness that gradually resolve within a week or two. Return to work as instructed per your physician Resume driving as instructed per physician Keep all scheduled follow up appointments Resume medications as instructed IMPORTANT: If prescribed a Platelet Aggregation Inhibitor such as, Plavix, Brilinta or Effient: Duration of therapy is minimum one year These medications are often used in combination with Aspirin in prevention of future heart attacks Never discontinue unless consult with your Director Of Instrumental Music STROKE (CVA) Risk factors for a stroke are: Age, cigarette smoking, diabetes, excessive alcohol consumption, family history, high blood pressure, overweight, physical inactivity, prior stroke, heart attack, diagnosis of carotid artery stenosis or other artery disease. Warning signs: Sudden numbness or weakness of the face, arm or leg; especially on one side of the body, sudden confusion, trouble speaking or understanding, sudden trouble seeing in one or both eyes, sudden trouble walking, dizziness, loss of balance or coordination, sudden severe headache with no cause. Call 911 or go to the Emergency Room. CONGESTIVE HEART FAILURE: If you have been diagnosed with Congestive Heart Failure (CHF) and your symptoms return, make an appointment with your physician Weigh yourself daily. Notify your physician if you have a weight gain of two or more pounds in one day or five or more pounds in one week. If you experience any difficulty breathing, please call 911 BLEEDING: Although the risk of bleeding is minimal, it can happen. If you have any bleeding from the site, apply firm pressure above the puncture site for 10-15 minutes. If the bleeding does not stop, continue manual pressure and call 911 Contact your physician if: You develop a fever greater than 101 degrees Fahrenheit Your site becomes reddened or has any drainage You have an increase in pain or burning at the site or if a large knot forms at the site. If you experience chest pain, shortness of breath, dizziness, or extreme tiredness, stop the activity and rest. Please notify your physicians office if you experience any of these symptoms and they are not relieved by rest please call 911! - Diet and Activity Activity: as per the cardiac rehab Diet: low fat, low cholesterol <Aldo Amador - Last Filed: 04/21/18 19:46> Date of Encounter: 04/21/18 - Discharge Diagnosis (1) NSTEMI (non-ST elevated myocardial infarction) Status: Acute (2) Hypertensive emergency Status: Acute (3) Carotid arterial disease Status: Chronic Qualifiers: Carotid artery disease type: occlusion Laterality: unspecified laterality Qualified Code(s): I65.29 - Occlusion and stenosis of unspecified carotid artery (4) Hypothyroid Status: Chronic Qualifiers: Hypothyroidism type: acquired Qualified Code(s): E03.9 - Hypothyroidism, unspecified (5) Coronary artery disease Priority: Secondary Status: Chronic Qualifiers: Coronary Disease-Associated Artery/Lesion type: [place] artery [place] vs. transplanted heart: [place] heart Associated angina: without angina Qualified Code(s): I25.10 - Atherosclerotic heart disease of [place] coronary artery without angina pectoris (6) Tobacco abuse Priority: Secondary Status: Chronic Hospital course: Ms. Garza is a 77 year old female - Time Spent with Patient Total time spent providing and/or coordinating discharge services: Date of admission: 04/20/18 19:07 Primary care physician: Barry Ro DO - Constitutional Vitals: Temp Pulse Resp BP Pulse Ox 97.5 F L 50 18 119/57 94 04/21/18 11:37 04/21/18 11:37 04/21/18 11:37 04/21/18 11:37 04/21/18 11:37 - Attending Attestation I examined this patient and my medical decision-making was reviewed with the Resident Physician on 04/21/18. I agree with the documented findings, disposition and treatment plan as described except to the extent set forth below. Ms Garza has been in observation for acute NSTEMI. She is s/p LHC and stent. She is now bradycardic and was advised to stay tonight for monitoring. She refuses despite being told the risks. She will be discharged home AMA. Exam alert Comfortable Heart glen Mucus membranes dry Lungs clear Abd soft No edema No bleeding noted Plan D/C AMA
--- NOTE | 2018-04-22 08:13 | Electrocardiograph Report ---
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
== END 2018-04-21 12:03 | disposition left against medical advice (07) | DRG 247 ==
LOC: 2NENU 19:26 → EMEROOARM 19:26 → SUATTDRO 21:38 → 2NENU 22:11 → 2NNU 04-20 12:18
PROVIDERS: ADMIT Family Medicine; ATTEND Internal Medicine

== ENCOUNTER 2019-02-01 13:15 | Inpatient (IN) ==
[2019-02-01] MEDS ORDERED: Naloxone 0.4 MG/ML INJ IVP PRN (15:03)
--- NOTE | 2019-02-01 15:41 | Internal Med History&Physical ---
Date of Encounter: 02/01/19 Time of Encounter: 15:15 Internal Medicine - H&P: HPI Chief complaint: Generalized weakness, dizziness, presyncope Admitted From: Emergency Dept Plans for Post Hospital Care: Home History of present illness: Ms. Garza is a 78 year old female patient with history of coronary artery disease with prior stent placed in 2018, hypertension, hyperlipidemia who presented to the ER at [facility] from her doctor's office due to complaints of dizziness and presyncope. She was visiting her doctor due to these symptoms for the past couple of weeks. She states that every time she stands up she feels like she is going to fall down. She has also noted melena and hematochezia over the past 3 days. No hematemesis. No hematuria. Patient has been on aspirin and Plavix ever since her stent April 2018. She has not had episodes of GI bleed in the past. Patient has had upper GI endoscopy and colonoscopy in the past but does not recollect exactly when. She does not recollect having any ulcers. She is known to have internal hemorrhoids. She denies any abdominal pain. No palpitations. No chest pain. She does have mild shortness of breath with exertion. No orthopnea or PND. No pedal edema. Patient also states that her blood pressure has been low. Especially with a diastolic blood pressure in the 40s. Past Med Surg Social Fam HX - Past Medical History Attestation: Yes The following information was validated with the patient. Source: patient Medical history: arthritis, hyperlipidemia, hypertension, RA, thyroid disease Additional medical history: Hyperthyroid. Hypothyroid. TIA x 2 Psychiatric history: depression - Past Surgical History Surgical History: hysterectomy Additional surgical history: cervical disc surgery - Social History Smoking Status: Light tobacco smoker Smokeless Tobacco Status: Yes (vapor) Alcohol use: occasionally Drug use: none - Family History Mother Hx Family Cardiac Disorders: Yes Father Hx Family Cancer: Yes (bone) Internal Medicine - H&P: Meds Acetaminophen/Diphenhydramine [Acetaminophen Pm Caplet] 1 tab PO HS 10/09/16 [History] Cholecalciferol (D-3) [Vitamin D] 100 mg PO DAILY 10/09/16 [History] Levothyroxine [Synthroid] 100 mcg PO DAILY 10/09/16 [History] cloNIDine HCl [CloNIDine HCl] 0.2 mg PO BID 10/22/16 [History] Aspirin 81 mg PO DAILY 365 Days tab.chew 12/06/17 [Rx] Cyanocobalamin (Vitamin B-12) [Vitamin B12] 1,000 mcg PO DAILY 04/19/18 [History] Olmesartan Medoxomil 20 mg PO DAILY 04/19/18 [History] Atorvastatin [Lipitor] 40 mg PO HS #30 tablet 04/21/18 [Rx] Clopidogrel [Plavix] 75 mg PO DAILY #30 tablet 04/21/18 [Rx] Metoprolol Tartrate 25 mg PO BID #60 tablet 04/21/18 [Rx] Dicyclomine [Bentyl] 10 mg PO TID 02/01/19 [History] amLODIPine [Norvasc] 10 mg PO DAILY 02/01/19 [History] Allergy/AdvReac Type Severity Reaction Status Date / Time acetaminophen [From Percocet] AdvReac Nausea Verified 04/19/18 21:02 caffeine [From Cafergot] AdvReac Swelling Verified 04/21/18 08:12 of Lip/Tongue/Throat codeine AdvReac Rash Verified 04/19/18 21:02 Ergotamine [From Cafergot] AdvReac Swelling Verified 04/19/18 21:02 of Lip/Tongue/Throat oxycodone [From Percocet] AdvReac Swelling Verified 04/19/18 21:02 of Lip/Tongue/Throat All Systems PM: A 10-system review of systems was performed and is negative for pertinent findings except as documented above in the HPI. - Constitutional Constitutional: fatigue, malaise, weakness, no chills, no fever(s), no night sweats - EENT Eyes: no change in vision, no discharge, no pain, no photophobia Ears: no ear discharge, no ear pain, no tinnitus Nose, mouth and throat: no dysphagia, no nasal discharge, no neck pain, no sore throat - Cardiovascular Cardiovascular ROS IM: no chest pain, no diaphoresis, no dyspnea, no lightheadedness, no palpitations, no syncope - Respiratory Respiratory: no cough, no dyspnea, no wheezing, no excessive phlegm production - Gastrointestinal Gastrointestinal: no abdominal pain, no diarrhea, no hematemesis, no hematochezia, no melena, no nausea, no vomiting - Genitourinary Genitourinary: no change in urinary stream, no dysuria, no flank pain, no hematuria - Musculoskeletal Musculoskeletal ROS IM: no numbness, no tingling - Integumentary Integumentary IM: no rash, no unusual bruising - Neurological Neurological ROS: no confusion, no convulsions, no focal weakness, no numbness, no tingling, no tremor(s) - Hematologic/Lymphatic Hematologic/Lymphatic: no easy bruising - Constitutional Vitals: Temp Pulse Resp BP Pulse Ox 98.2 F 86 18 192/76 100 02/01/19 14:56 02/01/19 14:56 02/01/19 14:56 02/01/19 14:56 02/01/19 14:56 General appearance: Present: cooperative, mild distress, A&O X 3, pleasant, answers questions appropriately Exam: General: Patient is alert, held distress, oriented x 3 Head: atraumatic, normocephalic, ENT: Mucous membranes moist Eye: normal appearance, PERRL, no scleral icterus, no conjunctival injection, conjunctival pallor present Neck: normal inspection, trachea midline, full ROM, no carotid bruits Chest: normal inspection, symmetric chest rise Respiratory: Good respiratory effort. Normal breath sounds. No wheezing or crackles. Cardiovascular: Regular rate and rhythm. s1 and s2 normal systolic murmur. No pedal edema Abdomen: Abdomen is soft, nontender. Bowel sounds are present Musculoskeletal: Spontaneously moving all extremities Skin: warm, dry, intact., Pallor present Neuro: Alert oriented x 3 normal cranial nerves, no focal deficits Psych: Patient's affect is normal Internal Med - H&P Results - Labs Labs: Myoglobin 4.4, MCV 63.5, platelets 412, BUN 11, creatinine 0.72 - Assessment and Plan (1) Acute blood loss anemia Current Visit: Yes Status: Acute (2) GI bleed Current Visit: Yes Status: Acute Qualifiers: GI bleed type/associated pathology: melena Qualified Code(s): K92.1 - M tonia (3) Essential hypertension Current Visit: Yes Status: Chronic (4) Coronary artery disease Current Visit: Yes Status: Chronic Qualifiers: Coronary Disease-Associated Artery/Lesion type: [place] artery [place] vs. transplanted heart: [place] heart Associated angina: without angina Qualified Code(s): I25.10 - Atherosclerotic heart disease of [place] coronary artery without angina pectoris - Summary of Assessment and Plan Summary of Assessment and Plan: Acute blood loss anemia: Severe anemia with hemoglobin of 4.4. Monitor patient in stepdown unit. Transfuse PRBCs to bring up hemoglobin to 8 given her history of coronary artery disease. We may need to give her Lasix in between to prevent pulmonary edema. High risk for complications. Acute GI bleed: Patient reported melena/hematochezia. No further episodes since coming into the ER. Will monitor closely. Place patient on IV PPI. Consult to GI for evaluation. Keep nothing by mouth after midnight. Clear liquids only for now. Essential hypertension: Blood pressure is currently very elevated. Likely rebound hypertension. Resume home medications. Monitor blood pressure closely. Coronary artery disease: Status post drug-eluting stent placement in April 2018. Patient on aspirin and Plavix. We will hold these medication for now till seen by GI. May resume these medications after EGD as patient will need to be on one year of uninterrupted antiplatelet therapy. - Time Spent With Patient Total time spent is greater than 50% in coordination of care (as documented) at patient's floor/unit and/or counseling patient:
--- NOTE | 2019-02-01 15:55 | Event Note ---
Date of Encounter: 02/01/19 Time of Encounter: 15:53 Consulted for melena, Hgb 4.4. Pt on asa and plavix. will plan for EGD tomorrow after pt has been transfused. keep NPO after midnight. Full consult to follow.
[2019-02-01 16:59] LABS: Hematocrit 22.4 % (35.3-44.9); Hemoglobin 6.1 g/dL (11.5-15.4); Mean Corpuscular HGB Conc 27.2 g/dL (31.6-35.5); Mean Corpuscular Hemoglobin 18.8 pg (28.0-33.3); Mean Corpuscular Volume 68.9 fL (83.0-100.0); Platelet Count 410 K/mcL (140-400); Red Blood Count 3.25 M/mcL (3.82-4.97); Red Cell Distribution Width 24.3 % (11.5-14.5)
[2019-02-01] MEDS: Pantoprazole 40 MG VIAL IVP SCH (17:15)
[2019-02-01] MEDS: cloNIDine HCl 0.1 MG TABLET PO SCH (20:37)
[2019-02-01] MEDS: Acetaminophen 325 MG TABLET PO PRN (20:38)
[2019-02-01] MEDS ORDERED: 0.9 % Sodium Chloride 250 ML ONE (23:20)
[2019-02-02 05:01] LABS: Basophils % 0.5 %; Eosinophils # 0.7 K/mcL (0.0-0.6); Eosinophils % 9.7 %; Hematocrit 25.7 % (35.3-44.9); Hemoglobin 7.5 g/dL (11.5-15.4); Immature Granulocytes % 0.5 % (0-4); Lymphocytes # 1.2 K/mcL (0.6-4.6); Mean Corpuscular HGB Conc 29.2 g/dL (31.6-35.5); Mean Corpuscular Hemoglobin 20.8 pg (28.0-33.3); Mean Corpuscular Volume 71.4 fL (83.0-100.0); Mean Platelet Volume 9.5 fL (9.4-12.4); Monocytes # 0.9 K/mcL (0.0-1.3); Monocytes % 12.3 %; Neutrophils # 4.6 K/mcL (1.6-8.9); Nucleated Red Blood Cells 0.5 /100 WBC (0); Platelet Count 349 K/mcL (140-400); Red Cell Distribution Width 24.2 % (11.5-14.5)
[2019-02-02 05:22] LABS: BUN/Creatinine Ratio 14 (6-26); Blood Urea Nitrogen 8 mg/dL (8-23); Calcium 9.5 mg/dL (8.6-10.3); Carbon Dioxide 27 mEq/L (23-29); Chloride 106 mEq/L (98-107); Glucose 94 mg/dL (70-105); Osmolality,Calculated 288 (280-300); Potassium 3.7 mEq/L (3.5-5.1); Sodium 140 mEq/L (136-145); eGFR For Non-African Americans > 60 (> 60)
[2019-02-02 05:35] LABS: Anisocytosis 3+ (Not Present); Microcytosis Present (Not Present); Poikilocytosis 2+ (Not Present); Tear Drop Cells 3+ (Not Present)
[2019-02-02 05:36] LABS: Ovalocytes 3+ (Not Present); Platelet Estimate Normal (Normal)
[2019-02-02] MEDS: Pantoprazole 40 MG VIAL IVP SCH ×2 (05:44→15:25)
[2019-02-02] MEDS ORDERED: 0.9 % Sodium Chloride 1,000 ML IVC SCH (09:00)
--- NOTE | 2019-02-02 12:01 | Gastroenterology Consult Note ---
<Lupe Main - Last Filed: 02/02/19 12:30> Date of Encounter: 02/02/19 Time of Encounter: 09:50 - Assessment and plan (1) GI bleed Current Visit: Yes Status: Acute Assessment and plan: Pt presented with Hgb 4.4. She has had increased weakness and tiredness that past few weeks. She admits to some melena the past few days. She is on asa and plavix for coronary stent placed 04/23. She has been transfused 1 unit prbcs and hgb is up to 7.5, will proceed with EGD today to rule out esophagitis, gastritis, duodenitis, PUD, MW tear or AVM. She may need colonoscopy if source of bleeding not found. Continue PPI, monitor H&H transfuse as needed. Qualifiers: GI bleed type/associated pathology: melena Qualified Code(s): K92.1 - Melena (2) Acute blood loss anemia Current Visit: Yes Status: Acute - Time Spent With Patient Total time spent is greater than 50% in coordination of care (as documented) at patient's floor/unit and/or counseling patient: GI History of Present Illness - Data of Consult Patient: known to practice within the last 3 years Consult date: 02/02/19 Requesting Physician: Reyna Guzman MD - Consult Narrative Reason for consult: melena, anemia History of present illness: Ms. Garaz is a 78 year old female patient with history of coronary artery disease with prior stent placed in April 2018, hypertension and hyperlipidemia. She presented to the ER at [facility] from her doctor's office due to complaints of dizziness and syncope. She was visiting her doctor due to these symptoms for the past couple of weeks. She states that every time she stands up she feels like she is going to fall down. She has also noted melena and hematochezia over the past 3 days. No hematemesis. No hematuria. Patient has been on aspirin and Plavix ever since her stent April 2018. She has not had episodes of GI bleed in the past. She denies any abdominal pain, nausea or vomiting. No palpitations. No chest pain. She does have mild shortness of breath with exertion. No orthopnea or PND. No pedal edema. Patient also states that her blood pressure has been low. nsaids: asa anticoagulants: plavix procedures: January [address] Salgado showed Schatzki ring, small hiatal hernia, erosive gastritis, 2.1 cm duodenal ulcer, deformity of the prepyloric region. Colonoscopy by Dr. Heaton in December 2013 showed internal hemorrhoids, and diverticulosis Past Med Surg Social Fam HX - Past Medical History Medical history: arthritis, hyperlipidemia, hypertension, RA, thyroid disease Additional medical history: Hyperthyroid. Hypothyroid. TIA x 2 Psychiatric history: depression - Past Surgical History Surgical History: hysterectomy Additional surgical history: cervical disc surgery - Social History Smoking Status: Light tobacco smoker Smokeless Tobacco Status: Yes (vapor) Alcohol use: occasionally Drug use: none - Family History Mother Hx Family Cardiac Disorders: Yes Father Hx Family Cancer: Yes (bone) Review of Systems: GI: as per [facility] GENERAL: denies fever, has some chills EYES: denies yellow discoloration ENT: denies pain with swallowing or difficulty swallowing CARDIO: denies chest pain, palpitations RESP: No Shortness of breath with exertion : denies change in color of urine NEURO: weakness HEME: Denies any bruising MS: denies joint pain, joint swelling or back pain. DERM: denies rash or itching PSYCH: Denies history of anxiety or depression - Constitutional Vitals: Temp Pulse Resp BP Pulse Ox 98.2 F 109 18 196/87 90 02/02/19 11:16 02/02/19 11:16 02/02/19 11:16 02/02/19 11:16 02/02/19 11:16 Exam: CONSTITUTIONAL:alert, no acute distress.HEAD:normocephalic.EYES:no jaundice.NECK:no obvious swelling.HEART:regular rate and rhythm, no murmurs.LUNGS:bilateral good air entry.ABDOMEN:non distended, soft, non tender, no masses palpable, no organomegaly.RECTAL EXAM:Deferred.EXTREMITIES:no clubbing, cyanosis or edema.SKIN:pallor noted, no stigmata of chronic liver disease.NEUROLOGIC:no obvious focal defect. Results - Labs CBC & Chem 7: 02/02/19 04:23 02/02/19 04:23 Labs: Last Result 02/02/19 04:23 Calcium 9.5 Entire Visit 02/02/19 04:23 Hgb 7.5 L Hct 25.7 L Consult Discharge Plan - Plan Referrals: Barry Ro DO [Primary Care Provider] - <Christina Alfonso - Last Filed: 02/02/19 18:08> Date of Encounter: 02/02/19 Time of Encounter: 11:25 - Time Spent With Patient Total time spent is greater than 50% in coordination of care (as documented) at patient's floor/unit and/or counseling patient: GI History of Present Illness - Data of Consult Requesting Physician: Reyna Guzman MD - Consult Narrative History of present illness: Ms. Garza is a 78 year old female - Constitutional Vitals: Temp Pulse Resp BP Pulse Ox 98.0 F 83 20 138/66 95 02/02/19 17:55 02/02/19 17:55 02/02/19 17:55 02/02/19 17:55 02/02/19 17:55 Results - Labs CBC & Chem 7: 02/02/19 13:19 02/02/19 04:23 Labs: Entire Visit 02/02/19 13:19 Hgb 8.3 L Hct 28.1 L - Attending Attestation I have personally performed a face to face evaluation on this patient. I have reviewed and agree with the care plan. History and Exam by me shows: Patient seen. Patient admitted because of melena denies any abdominal pain on examination: Abdomen is soft. Assessment: Patient with a history of coronary disease status post stenting now on aspirin and Plavix with melena with severe anemia. Recommendation: Patient will have a upper endoscopy done to rule out upper GI causes for her melena and if negative then colonoscopy
--- NOTE | 2019-02-02 12:24 | Internal Med Progress Note ---
Hospitalist Progress Note - Encounter Date of Encounter: 02/02/19 Time of Encounter: 12:20 - Subjective Interval History: Evaluated patient earlier today. Doing much better overall. Has not had any further episodes of melena or hematochezia. No abdominal pain reported. She just feels hungry as she has been nothing by mouth since midnight. - Exam Vitals: Temp Pulse Resp BP Pulse Ox 98.2 F 109 18 196/87 90 02/02/19 11:16 02/02/19 11:16 02/02/19 11:16 02/02/19 11:16 02/02/19 11:16 Exam: General: Patient is alert, no acute distress, oriented x 3 ENT: Mucous membranes moist Respiratory: Good respiratory effort. Normal breath sounds. No wheezing or crackles. Cardiovascular: Regular rate and rhythm. s1 and s2 normal systolic murmur present. No pedal edema Abdomen: Abdomen is soft, nontender. Bowel sounds are present Musculoskeletal: Spontaneously moving all extremities Skin: warm, dry, intact, pallor. Neuro: Alert oriented x 3 normal cranial nerves, no focal deficits - Assessment and Plan (1) Acute blood loss anemia Current Visit: Yes Status: Acute (2) GI bleed Current Visit: Yes Status: Acute (3) Essential hypertension Current Visit: Yes Status: Chronic (4) Coronary artery disease Current Visit: Yes Status: Chronic - Summary of Assessment and Plan Summary of Assessment and Plan: Acute blood loss anemia: Hemoglobin 7.5 today. Will continue to monitor. Holding ASA/ PLAVIX pending EGD scheduled for today. S/p 2 units PRBC transfusion. Moderate risk for complications. Acute GI bleed: Patient is currently nothing by mouth. Plan for EGD today. Essential hypertension: Blood pressure remains elevated. Oral meds on hold due to planned GI workup. Continue hydralazine. Will also add Lopressor IV as nee ded for systolic blood pressure greater than 160. Coronary artery disease: Status post drug-eluting stent placement in April 2018. Patient on aspirin and Plavix. Currently holding these medications pending GI workup scheduled for today. If no active bleeding noted, will resume aspirin, Plavix. - Time Spent with Patient Total time spent is greater than 50% in coordination of care (as documented) at patient's floor/unit and/or counseling patient: Internal Medicine: Result - Labs CBC & Chem 7: 02/02/19 04:23 02/02/19 04:23 Labs: Short CBC 02/01/19 02/02/19 Range/Units 16:17 04:23 WBC 7.3 7.5 (4.3-11.1) K/mcL Hgb 6.1 L D 7.5 L (11.5-15.4) g/dL Hct 22.4 L 25.7 L (35.3-44.9) % Plt Count 410 H 349 (140-400) K/mcL Neutrophils # 4.6 (1.6-8.9) K/mcL BMP 02/02/19 04:23 Sodium 140 Potassium 3.7 Chloride 106 Carbon Dioxide 27 BUN 8 Creatinine 0.56 L Glucose 94 Calcium 9.5 Consult Discharge Plan - Plan Referrals: Barry Ro DO [Primary Care Provider] - (2) GI bleed Qualifiers: GI bleed type/associated pathology: melena Qualified Code(s): K92.1 - Melena (4) Coronary artery disease Qualifiers: Coronary Disease-Associated Artery/Lesion type: [place] artery [place] vs. transplanted heart: [place] heart Associated angina: without angina Qualified Code(s): I25.10 - Atherosclerotic heart disease of [place] coronary artery without angina pectoris
[2019-02-02] MEDS ORDERED: *HR* Metoprolol 5 MG/5 ML VIAL IVP PRN (12:25)
[2019-02-02] MEDS ORDERED: *HR* Metoprolol 5 MG/5 ML VIAL IVP ONE (12:56)
[2019-02-02] MEDS ORDERED: *HR* Propofol 200 MG/20 ML VIAL IVP ONE ×2 (13:14→13:29)
[2019-02-02] MEDS ORDERED: Lidocaine -MPF 2% 2 ML VIAL ONE (13:14)
--- NOTE | 2019-02-02 13:20 | Anesthesia Evaluation PreOp ---
Date of Encounter: 02/02/19 Time of Encounter: 13:18 - Past History Planned Operation: EGD Cardiac History: HTN, Hyperlipidemia Pulmonary History: Former smoker, Pack/yr (52) ENROBER TENDER History: Denies Any Significant HX Other Medical History: Thyroid (thyroid), Other (anemia) Anesthesia History: No Prior Anesthetic Complications, Past Anesthesia (wrist scope) Alcohol Use: occasionally Drug use: none Medications and Allergies Acetaminophen/Diphenhydramine [Acetaminophen Pm Caplet] 1 tab PO HS 10/09/16 [History] Cholecalciferol (D-3) [Vitamin D] 100 mg PO DAILY 10/09/16 [History] Levothyroxine [Synthroid] 100 mcg PO DAILY 10/09/16 [History] cloNIDine HCl [CloNIDine HCl] 0.2 mg PO BID 10/22/16 [History] Aspirin 81 mg PO DAILY 365 Days tab.chew 12/06/17 [Rx] Cyanocobalamin (Vitamin B-12) [Vitamin B12] 1,000 mcg PO DAILY 04/19/18 [History] Olmesartan Medoxomil 20 mg PO DAILY 04/19/18 [History] Atorvastatin [Lipitor] 40 mg PO HS #30 tablet 04/21/18 [Rx] Clopidogrel [Plavix] 75 mg PO DAILY #30 tablet 04/21/18 [Rx] Metoprolol Tartrate 25 mg PO BID #60 tablet 04/21/18 [Rx] Dicyclomine [Bentyl] 10 mg PO TID 02/01/19 [History] amLODIPine [Norvasc] 10 mg PO DAILY 02/01/19 [History] Allergy/AdvReac Type Severity Reaction Status Date / Time acetaminophen [From Percocet] AdvReac Nausea Verified 04/19/18 21:02 caffeine [From Cafergot] AdvReac Swelling Verified 04/21/18 08:12 of Lip/Tongue/Throat codeine AdvReac Rash Verified 04/19/18 21:02 Ergotamine [From Cafergot] AdvReac Swelling Verified 04/19/18 21:02 of Lip/Tongue/Throat oxycodone [From Percocet] AdvReac Swelling Verified 04/19/18 21:02 of Lip/Tongue/Throat - Meds/Allergy Pre-op Review Medications Reviewed: Yes Allergies Reviewed: Yes Beta Blockers on Current Med List: No Anesthesia Results - Labs 02/02/19 13:19 02/02/19 04:23 - Imaging EKG: report reviewed (Sinus rhythm Right bundle branch block Anteroseptal infarct, age indeterminate Electronically Signed On 02-01-2019 12:41:01 EDT by Jah Rodriguez) Additional studies: 04/2018 EV/EV echocardiogram Impressions: LVEF 60%. Normal LV wall motion. Mild concentric left ventricular hypertrophy. Moderate left ventricular diastolic dysfunction. Normal right ventricular structure and function. Moderate-severely dilated left atrium. Mild-moderate mitral regurgitation. Mild tricuspid regurgitation. No pulmonary hypertension. Anesthesia Exam Vital Signs/O2 Sat, Most Current Temp Pulse Resp BP Pulse Ox 98.2 F 109 18 196/87 90 02/02/19 11:40 02/02/19 11:40 02/02/19 11:40 02/02/19 11:40 02/02/19 11:40 Weight: 60kg NPO (# of Hours): >8 - HEENT Pupil (Motor): Pupils equal, EOMI Mallampati: II Teeth: Edentulous Oral Opening: Greater than 3 - ENROBER TENDER LOC: Oriented ENROBER TENDER Motor: Normal RUE, Normal LUE, Normal RLE, Normal LLE, Normal Face ENROBER TENDER Sensory: Normal: RUE, LUE, RLE, LLE, Face - Cardiac Rhythm: Regular - Pulmonary Breath Sounds: bilateral Clear Respiratory Effort: Symmetrical Anesthesia Assess/Plan ASA Score: 3 Level of consciousness: Cooperative Anesthetic Plan: General (plan b), MAC Monitoring Plan: Standard Monitors Recovery Plan: PACU
[2019-02-02 13:30] LABS: Hematocrit 28.1 % (35.3-44.9); Hemoglobin 8.3 g/dL (11.5-15.4)
[2019-02-02] MEDS: 0.9 % Sodium Chloride 500 ML IVC SCH (14:43)
--- NOTE | 2019-02-02 15:22 | Anesthesia Evaluation Post Op ---
Date of Encounter: 02/02/19 Time of Encounter: 15:21 - Vital Signs Vital Signs: Vital Signs/O2 Sat, Most Current Temp Pulse Resp BP Pulse Ox 98.2 F 99 18 119/82 93 02/02/19 11:40 02/02/19 13:43 02/02/19 13:43 02/02/19 13:43 02/02/19 13:43 See nursing notes - Lungs Lungs: Clear Ascult./Percussion - Airway Airway: Non-obstructed - Cardiovascular Regular Rate - Mental Status Mental Status: Alert & Oriented, Answers Appropriately - Pain Pain Scale: 0 Pain Scale used: Numeric (1 - 10) - Nausea Vomiting Nausea Vomiting: Not Present - Hydration Hydration: NPO - Discharge PostOp Status: Transfer Patient to floor
[2019-02-02] MEDS: cloNIDine HCl 0.1 MG TABLET PO SCH ×2 (15:25→20:40)
[2019-02-02] MEDS: amLODIPine 5 MG TABLET PO SCH (15:25)
[2019-02-02] MEDS: Acetaminophen 325 MG TABLET PO PRN (15:26)
--- NOTE | 2019-02-02 15:42 | Event Note ---
Date of Encounter: 02/02/19 Time of Encounter: 15:41 Discussed with GI post endoscopy. Patient has AVMs that were nonbleeding were treated with APC. They recommend transfusing to keep hemoglobin closer to 9 as patient is on aspirin and Plavix. Okay to restart aspirin and Plavix at this time.
[2019-02-02] MEDS ORDERED: 0.9 % Sodium Chloride 250 ML ONE (16:13)
[2019-02-03 04:35] LABS: Basophils % 0.4 %; Eosinophils # 0.8 K/mcL (0.0-0.6); Hematocrit 34.6 % (35.3-44.9); Immature Granulocytes % 0.6 % (0-4); Lymphocytes # 1.1 K/mcL (0.6-4.6); Lymphocytes % 11.8 %; Mean Corpuscular HGB Conc 30.1 g/dL (31.6-35.5); Mean Corpuscular Hemoglobin 22.7 pg (28.0-33.3); Mean Corpuscular Volume 75.5 fL (83.0-100.0); Mean Platelet Volume 10.2 fL (9.4-12.4); Monocytes # 0.9 K/mcL (0.0-1.3); Monocytes % 9.7 %; Neutrophils # 6.7 K/mcL (1.6-8.9); Nucleated Red Blood Cells 0.2 /100 WBC (0); Platelet Count 385 K/mcL (140-400); Red Blood Count 4.58 M/mcL (3.82-4.97); Red Cell Distribution Width 26.3 % (11.5-14.5); Segmented Neutrophils % 69.5 %
[2019-02-03 04:37] LABS: Hemoglobin 10.4 g/dL (11.5-15.4)
[2019-02-03 04:59] LABS: % Iron Saturation 4 % (15-50); BUN/Creatinine Ratio 17 (6-26); Blood Urea Nitrogen 9 mg/dL (8-23); Calcium 9.9 mg/dL (8.6-10.3); Carbon Dioxide 24 mEq/L (23-29); Chloride 104 mEq/L (98-107); Glucose 79 mg/dL (70-105); Iron 21 mcg/dL (50-170); Osmolality,Calculated 286 (280-300); Potassium 3.5 mEq/L (3.5-5.1); Sodium 139 mEq/L (136-145); Transferrin 336 mg/dL (203-362); eGFR For Non-African Americans > 60 (> 60)
[2019-02-03 05:14] LABS: Anisocytosis 3+ (Not Present); Platelet Estimate Normal (Normal); Polychromasia 2+ (Not Present)
[2019-02-03 05:15] LABS: Hypochromasia Present (Not Present)
[2019-02-03 05:16] LABS: Ferritin 13 ng/mL (10-120)
[2019-02-03 05:22] LABS: Folate > 22.3 ng/mL (3.0-16.0); Vitamin B12 893 pg/mL (250-1100)
[2019-02-03] MEDS: Pantoprazole 40 MG VIAL IVP SCH (05:43)
[2019-02-03] MEDS: 0.9 % Sodium Chloride 500 ML IVC SCH (05:44)
[2019-02-03] MEDS: cloNIDine HCl 0.1 MG TABLET PO SCH (07:53)
[2019-02-03] MEDS: amLODIPine 5 MG TABLET PO SCH (07:54)
[2019-02-03] MEDS ORDERED: Aspirin Enteric Coated 81 MG Tablet PO SCH (09:00)
[2019-02-03 11:19] VITALS: BP 134/58
--- NOTE | 2019-02-03 13:16 | Discharge Summary ---
- NOTES TO OUTPATIENT PROVIDER Notes to Outpatient Provider: Patient with history of coronary artery disease status post stent in April 2018 who presented to the ER with complaints of generalized weakness, dizziness and presyncope. She was found to have a hemoglobin level of 4.4. She had recent episodes of melena and hematochezia. She was evaluated by GI and underwent upper GI endoscopy yesterday. She was found to have multiple nonbleeding angiectasias in her stomach and duodenum which were treated with APC. She did receive 2 units of PRBC and her hemoglobin levels have been stable and rising. She does have iron deficiency and will be placed on iron supplements. This time she is clinically stable to be discharged home. She will follow up with GI for capsule endoscopy as outpatient to rule out bleeding in her small bowel. Also recommend checking CBC in 1 week. Date of Encounter: 02/03/19 Time of Encounter: 13:14 - Discharge Diagnosis (1) Acute blood loss anemia Priority: Primary Status: Acute (2) GI bleed Priority: Secondary Status: Acute Qualifiers: GI bleed type/associated pathology: melena Qualified Code(s): K92.1 - Melena (3) Essential hypertension Priority: Secondary Status: Chronic (4) Coronary artery disease Priority: Secondary Status: Chronic Qualifiers: Coronary Disease-Associated Artery/Lesion type: [place] artery [place] vs. transplanted heart: [place] heart Associated angina: without angina Qualified Code(s): I25.10 - Atherosclerotic heart disease of [place] coronary artery without angina pectoris Hospital course: Ms. Garza is a 78 year old female Patient with history of coronary artery disease status post stent in April 2018 who presented to the ER with complaints of generalized weakness, dizziness and presyncope. She was found to have a hemoglobin level of 4.4. She had recent episodes of melena and hematochezia. She was evaluated by GI and underwent upper GI endoscopy yesterday. She was found to have multiple nonbleeding angiectasias in her stomach and duodenum which were treated with APC. She did receive 2 units of PRBC and her hemoglobin levels have been stable and rising. She does have iron deficiency and will be placed on iron supplements. This time she is clinically stable to be discharged home. She will follow up with GI for capsule endoscopy as outpatient to rule out bleeding in her small bowel. Patient is on aspirin and Plavix and will need to take these medications and instructed till 1 year after her prior stent in April 2018. Patient does understand that she does have increased risk of bleeding while on these medications and will seek treatment if she develops further episodes of hematochezia or melena. Discharge discussed with: patient, family, nurse - Time Spent with Patient Total time spent providing and/or coordinating discharge services: Time spent: Greater than 30 minutes (40 min) - Discharge Medications Prescriptions: New Omeprazole [PriLOSEC] 20 mg PO DAILY #30 cap Ferrous Fumarate/Docusate [Iron W-Stool Softener Cplet] 1 each PO DAILY #30 tablet.er Continued Acetaminophen/Diphenhydramine [Acetaminophen Pm Caplet] 2 tab PO HS Levothyroxine [Synthroid] 75 mcg PO QAM Cholecalciferol (D-3) [Vitamin D] 1,000 unit PO DAILY Cyanocobalamin (Vitamin B-12) [Vitamin B12] 1,000 mcg PO DAILY Atorvastatin [Lipitor] 40 mg PO HS #30 tablet Clopidogrel [Plavix] 75 mg PO DAILY #30 tablet Metoprolol Tartrate 25 mg PO BID #60 tablet Acetaminophen [Tylenol Arthritis] 650 mg PO DAILY Aspirin [Adult Aspirin Regimen] 81 mg PO DAILY HYDROcodone/Acet 5/325 mg [[place] 5-325 mg] 1 tab PO Q6H PRN PRN Reason: Pain Olmesartan Medoxomil 10 mg PO DAILY Trazodone HCl 25 - 50 mg PO HS PRN PRN Reason: Pain cloNIDine HCl [Clonidine HCl] 0.2 mg PO BID amLODIPine [Norvasc] 10 mg PO DAILY Home Medications: Acetaminophen/Diphenhydramine [Acetaminophen Pm Caplet] 2 tab PO HS 10/09/16 [History] Cholecalciferol (D-3) [Vitamin D] 1,000 unit PO DAILY 10/09/16 [History] Levothyroxine [Synthroid] 75 mcg PO QAM 10/09/16 [History] Cyanocobalamin (Vitamin B-12) [Vitamin B12] 1,000 mcg PO DAILY 04/19/18 [History] Atorvastatin [Lipitor] 40 mg PO HS #30 tablet 04/21/18 [Rx] Clopidogrel [Plavix] 75 mg PO DAILY #30 tablet 04/21/18 [Rx] Metoprolol Tartrate 25 mg PO BID #60 tablet 04/21/18 [Rx] amLODIPine [Norvasc] 10 mg PO DAILY 02/01/19 [History] Acetaminophen [Tylenol Arthritis] 650 mg PO DAILY 02/03/19 [History] Aspirin [Adult Aspirin Regimen] 81 mg PO DAILY 02/03/19 [History] Ferrous Fumarate/Docusate [Iron W-Stool Softener Cplet] 1 each PO DAILY #30 tablet.er 02/03/19 [Rx] HYDROcodone/Acet 5/325 mg [[place] 5-325 mg] 1 tab PO Q6H PRN 02/03/19 [History] Olmesartan Medoxomil 10 mg PO DAILY 02/03/19 [History] Omeprazole [PriLOSEC] 20 mg PO DAILY #30 cap 02/03/19 [Rx] Trazodone HCl 25 - 50 mg PO HS PRN 02/03/19 [History] cloNIDine HCl [Clonidine HCl] 0.2 mg PO BID 02/03/19 [History] Allergies/Adverse Reactions: Allergy/AdvReac Type Severity Reaction Status Date / Time acetaminophen [From Percocet] AdvReac Nausea Verified 04/19/18 21:02 caffeine [From Cafergot] AdvReac Swelling Verified 04/21/18 08:12 of Lip/Tongue/Throat codeine AdvReac Rash Verified 04/19/18 21:02 Ergotamine [From Cafergot] AdvReac Swelling Verified 04/19/18 21:02 of Lip/Tongue/Throat oxycodone [From Percocet] AdvReac Swelling Verified 04/19/18 21:02 of Lip/Tongue/Throat Date of admission: 02/01/19 14:38 Primary care physician: Barry Ro DO Consults: 02/02/19 08:15 Consult to Gastroenterology [CONS] Routine Consulting Provider: Gastroenterology Nataliya Reason for Consult: Melena, Hgb 4.4 Time Notified: 08:15 Call Completed: Yes Discharging clinician: Reyna Guzman Anticipated date of discharge: 02/03/19 - Constitutional Vitals: Temp Pulse Resp BP Pulse Ox 98.1 F 66 18 134/58 91 02/03/19 11:16 02/03/19 11:16 02/03/19 11:16 02/03/19 11:16 02/03/19 11:16 General appearance: Present: cooperative, mild distress, A&O X 3, pleasant, answers questions appropriately Exam: General: Patient is alert, no acute distress, oriented x 3 ENT: Mucous membranes moist Respiratory: Good respiratory effort. Normal breath sounds. No wheezing or crackles. Cardiovascular: Regular rate and rhythm. s1 and s2 normal No clicks, rubs, gallops, or murmurs. No pedal edema Abdomen: Abdomen is soft, nontender. Bowel sounds are present Musculoskeletal: Spontaneously moving all extremities Skin: warm, dry, intact. Neuro: Alert oriented x 3 normal cranial nerves, no focal deficits - Patient Status Disposition: Home, Self-Care Condition: Fair Functional capacity at discharge: independent ambulation Overall status at discharge: patient is progressing back to baseline - Ambulatory Orders Ambulatory Orders: Basic Metabolic Panel [CHEM] Time Frame: 1 Week, Facility: [facility], Location: Lab - Discharge Instructions Instructions: Anemia (GEN), Chronic Hypertension (DC) Follow Up With: Barry Ro DO [Primary Care Provider] - 02/08/19 11:30 am Christina Alfonso MD [Partnered Physician] - (in 1-2 weeks) - Diet and Activity Activity: increase activity as tolerated Diet: low fat, low cholesterol, low salt diet
== END 2019-02-03 15:35 | disposition home or self-care (01) | DRG 378 ==
LOC: SUATTDRO 14:38 → 2NNU 14:38
PROVIDERS: ADMIT Internal Medicine Nephrology; ATTEND Internal Medicine

== ENCOUNTER 2020-08-27 19:09 | Observation (INO) ==
[2020-08-27] MEDS ORDERED: 0.9 % Sodium Chloride 1,000 ML IVC ONE (19:38)
[2020-08-27] MEDS ORDERED: Isovue-370 500 ML BOTTLE IVP ONE (20:11)
[2020-08-27 20:28] LABS: Hematocrit 37.3 % (35.3-44.9); Hemoglobin 12.4 g/dL (11.5-15.4); Mean Corpuscular HGB Conc 33.2 g/dL (31.6-35.5); Mean Corpuscular Hemoglobin 30.6 pg (28.0-33.3); Mean Corpuscular Volume 92.1 fL (83.0-100.0); Mean Platelet Volume 10.7 fL (9.4-12.4); Platelet Count 226 K/mcL (140-400); Red Blood Count 4.05 M/mcL (3.82-4.97); Red Cell Distribution Width 13.3 % (11.5-14.5); White Blood Count 6.7 K/mcL (4.3-11.1)
[2020-08-27 20:42] LABS: Bilirubin,Urine Negative (Negative); Blood,Urine Negative (Negative); Clarity,Urine Clear (Clear); Color,Urine Light-Yellow (Yellow); Glucose,Urine (UA) Normal (Normal); Ketones,Urine Negative (Negative); Leukocyte Esterase,Urine Negative (Negative); Nitrite,Urine Negative (Negative); Protein,Urine Trace mg/dL (Neg-Trace); Specific Gravity,Urine 1.009 (1.010-1.025); Urobilinogen,Urine Normal (Normal)
[2020-08-27 20:47] LABS: Alanine Aminotransferase 9 Units/L (7-52); Albumin 3.5 g/dL (3.5-5.7); Albumin/Globulin Ratio 1.3 (1.1-2.2); Alkaline Phosphatase 70 Units/L (34-104); Aspartate Amino Transferase 12 Units/L (13-39); BUN/Creatinine Ratio 20 (6-26); Bilirubin,Direct 0.1 mg/dL (0.0-0.2); Bilirubin,Indirect 0.5 mg/dL (0.0-1.0); Bilirubin,Total 0.6 mg/dL (0.3-1.0); Blood Urea Nitrogen 9 mg/dL (8-23); Calcium 9.4 mg/dL (8.6-10.3); Carbon Dioxide 26 mEq/L (23-29); Chloride 103 mEq/L (98-107); Globulin 2.8 g/dL (2.4-3.5); Glucose 116 mg/dL (70-105); Lipase 3 Units/L (11-82); Osmolality,Calculated 284 (280-300); Sodium 137 mEq/L (136-145); Total Protein 6.3 g/dL (6.4-8.9); eGFR For African Americans > 60 (> 60); eGFR For Non-African Americans > 60 (> 60)
[2020-08-27 21:09] LABS: Basophils # 0.1 K/mcL (0.0-0.2); Lymphocytes # 1.2 K/mcL (0.6-4.6); Monocytes # 0.7 K/mcL (0.0-1.3); Neutrophils # 4.7 K/mcL (1.6-8.9); Platelet Estimate Normal (Normal)
[2020-08-27] MEDS ORDERED: MetroNIDAZOLE 500 MG/100 ML 500 MG/100 ML BAG IVPB ONE (22:34)
[2020-08-27] MEDS ORDERED: Ondansetron 4 MG/2 ML VIAL IVP PRN (23:04)
[2020-08-27] MEDS ORDERED: Naloxone 0.4 MG/ML INJ IVP PRN (23:04)
[2020-08-27] MEDS ORDERED: Acetaminophen 325 MG TABLET PO PRN (23:05)
[2020-08-27] MEDS ORDERED: 0.9 % Sodium Chloride 1,000 ML IVC SCH (23:15)
[2020-08-28] MEDS ORDERED: Potassium Chloride Elixir 20 MEQ/15 ML UDC PO ONE (03:27)
[2020-08-28 04:59] LABS: Hematocrit 38.8 % (35.3-44.9); Hemoglobin 12.6 g/dL (11.5-15.4); Mean Corpuscular HGB Conc 32.5 g/dL (31.6-35.5); Mean Corpuscular Hemoglobin 29.4 pg (28.0-33.3); Mean Corpuscular Volume 90.7 fL (83.0-100.0); Mean Platelet Volume 10.5 fL (9.4-12.4); Platelet Count 247 K/mcL (140-400); Red Blood Count 4.28 M/mcL (3.82-4.97); Red Cell Distribution Width 13.2 % (11.5-14.5); White Blood Count 6.1 K/mcL (4.3-11.1)
[2020-08-28 05:18] LABS: Alanine Aminotransferase 10 Units/L (7-52); Albumin 3.4 g/dL (3.5-5.7); Albumin/Globulin Ratio 1.2 (1.1-2.2); Alkaline Phosphatase 75 Units/L (34-104); Aspartate Amino Transferase 13 Units/L (13-39); BUN/Creatinine Ratio 15 (6-26); Bilirubin,Total 0.6 mg/dL (0.3-1.0); Blood Urea Nitrogen 6 mg/dL (8-23); Calcium 9.3 mg/dL (8.6-10.3); Carbon Dioxide 27 mEq/L (23-29); Chloride 101 mEq/L (98-107); Globulin 2.8 g/dL (2.4-3.5); Glucose 113 mg/dL (70-105); Osmolality,Calculated 282 (280-300); Potassium 2.9 mEq/L (3.5-5.1); Sodium 137 mEq/L (136-145); Total Protein 6.2 g/dL (6.4-8.9); eGFR For African Americans > 60 (> 60); eGFR For Non-African Americans > 60 (> 60)
[2020-08-28] MEDS: MetroNIDAZOLE 500 MG/100 ML 500 MG/100 ML BAG IVPB SCH ×3 (07:45→23:37)
[2020-08-28] MEDS ORDERED: 0.9 % Sodium Chloride 500 ML IVC ONE (08:15)
[2020-08-28] MEDS ORDERED: Ringers Solution, Lactated 1,000 ML IVC SCH (17:45)
[2020-08-28 19:19] LABS: Adenovirus F 40/41 PCR Not detected (Not detect); Astrovirus PCR Not detected (Not detect); C.difficile Toxin A/B Gene PCR Not detected (Not detect); Campylobacter by PCR Not detected (Not detect); Cryptosporidium by PCR Not detected (Not detect); Cyclospora cayetanensis PCR Not detected (Not detect); E. coli O157 by PCR Not detected (Not detect); Entamoeba histolytica PCR Not detected (Not detect); Enteroaggregative E.coli(EAEC) Not detected (Not detect); Enteropathogenic E.coli(EPEC) Not detected (Not detect); Enterotoxigenic E.coli (ETEC) Not detected (Not detect); Giardia lamblia PCR Not detected (Not detect); Norovirus GI/GII PCR Not detected (Not detect); Plesiomonas shigelloides PCR Not detected (Not detect); Rotavirus A PCR Not detected (Not detect); Salmonella PCR Not detected (Not detect); Sapovirus PCR Not detected (Not detect); Shig/EnteroinvasiveE coli EIEC Not detected (Not detect); Shigalike tox-prod E coli STEC Not detected (Not detect); Vibrio PCR Not detected (Not detect); Vibrio cholerae PCR Not detected (Not detect); Yersinia enterocolitica PCR Not detected (Not detect)
[2020-08-28] MEDS: Melatonin 3 MG TABLET PO PRN (21:03)
[2020-08-29] MEDS: Acetaminophen 325 MG TABLET PO PRN ×2 (02:06→18:24)
[2020-08-29 05:43] LABS: Basophils % 0.5 %; Eosinophils # 0.1 K/mcL (0.0-0.6); Eosinophils % 1.6 %; Hematocrit 37.5 % (35.3-44.9); Hemoglobin 12.5 g/dL (11.5-15.4); Immature Granulocytes % 0.5 % (0-4); Lymphocytes # 1.4 K/mcL (0.6-4.6); Lymphocytes % 22.2 %; Mean Corpuscular HGB Conc 33.3 g/dL (31.6-35.5); Mean Corpuscular Hemoglobin 30.6 pg (28.0-33.3); Mean Corpuscular Volume 91.9 fL (83.0-100.0); Mean Platelet Volume 10.4 fL (9.4-12.4); Monocytes # 1.1 K/mcL (0.0-1.3); Monocytes % 18.3 %; Neutrophils # 3.5 K/mcL (1.6-8.9); Platelet Count 266 K/mcL (140-400); Red Blood Count 4.08 M/mcL (3.82-4.97); Red Cell Distribution Width 13.2 % (11.5-14.5); Segmented Neutrophils % 56.9 %; White Blood Count 6.2 K/mcL (4.3-11.1)
[2020-08-29 06:05] LABS: Alanine Aminotransferase 8 Units/L (7-52); Albumin 3.4 g/dL (3.5-5.7); Albumin/Globulin Ratio 1.3 (1.1-2.2); Alkaline Phosphatase 65 Units/L (34-104); Aspartate Amino Transferase 13 Units/L (13-39); BUN/Creatinine Ratio 7 (6-26); Bilirubin,Total 0.5 mg/dL (0.3-1.0); Blood Urea Nitrogen 3 mg/dL (8-23); Carbon Dioxide 29 mEq/L (23-29); Chloride 100 mEq/L (98-107); Globulin 2.7 g/dL (2.4-3.5); Glucose 100 mg/dL (70-105); Magnesium 1.5 mg/dL (1.6-2.6); Osmolality,Calculated 281 (280-300); Potassium 3.1 mEq/L (3.5-5.1); Sodium 137 mEq/L (136-145); Total Protein 6.1 g/dL (6.4-8.9); eGFR For African Americans > 60 (> 60); eGFR For Non-African Americans > 60 (> 60)
[2020-08-29] MEDS: Cyanocobalamin (B-12) 1,000 MCG TABLET PO SCH (07:39)
[2020-08-29] MEDS: Cholecalciferol (D-3) 1,000 UNIT (25MCG) TABLET PO SCH (07:39)
[2020-08-29] MEDS: MetroNIDAZOLE 500 MG/100 ML 500 MG/100 ML BAG IVPB SCH ×2 (07:39→16:02)
[2020-08-29] MEDS ORDERED: Potassium Chloride Elixir 20 MEQ/15 ML UDC PO ONE ×2 (08:10→15:00)
[2020-08-29] MEDS: 0.9 % Sodium Chloride 1,000 ML IVC SCH (15:26)
[2020-08-29] MEDS: Melatonin 3 MG TABLET PO PRN (20:34)
[2020-08-30] MEDS: MetroNIDAZOLE 500 MG/100 ML 500 MG/100 ML BAG IVPB SCH (01:07)
[2020-08-30] MEDS: 0.9 % Sodium Chloride 1,000 ML IVC SCH (01:55)
[2020-08-30 06:16] VITALS: BP 116/85
[2020-08-30 06:18] LABS: Basophils % 0.4 %; Eosinophils # 0.2 K/mcL (0.0-0.6); Hematocrit 40.3 % (35.3-44.9); Hemoglobin 13.1 g/dL (11.5-15.4); Immature Granulocytes % 0.6 % (0-4); Lymphocytes # 1.5 K/mcL (0.6-4.6); Lymphocytes % 21.9 %; Mean Corpuscular HGB Conc 32.5 g/dL (31.6-35.5); Mean Corpuscular Hemoglobin 29.8 pg (28.0-33.3); Mean Corpuscular Volume 91.8 fL (83.0-100.0); Mean Platelet Volume 10.2 fL (9.4-12.4); Monocytes # 0.8 K/mcL (0.0-1.3); Monocytes % 11.7 %; Neutrophils # 4.2 K/mcL (1.6-8.9); Platelet Count 313 K/mcL (140-400); Red Blood Count 4.39 M/mcL (3.82-4.97); Red Cell Distribution Width 13.1 % (11.5-14.5); Segmented Neutrophils % 62.4 %; White Blood Count 6.8 K/mcL (4.3-11.1)
[2020-08-30 06:40] LABS: Alanine Aminotransferase 7 Units/L (7-52); Albumin 3.4 g/dL (3.5-5.7); Albumin/Globulin Ratio 1.3 (1.1-2.2); Alkaline Phosphatase 63 Units/L (34-104); Aspartate Amino Transferase 14 Units/L (13-39); BUN/Creatinine Ratio 8 (6-26); Bilirubin,Total 0.5 mg/dL (0.3-1.0); Blood Urea Nitrogen 4 mg/dL (8-23); Carbon Dioxide 27 mEq/L (23-29); Chloride 102 mEq/L (98-107); Globulin 2.7 g/dL (2.4-3.5); Glucose 104 mg/dL (70-105); Magnesium 1.6 mg/dL (1.6-2.6); Osmolality,Calculated 281 (280-300); Potassium 3.4 mEq/L (3.5-5.1); Sodium 137 mEq/L (136-145); Total Protein 6.1 g/dL (6.4-8.9); eGFR For African Americans > 60 (> 60); eGFR For Non-African Americans > 60 (> 60)
[2020-08-30] MEDS ORDERED: Ondansetron ODT 4 MG TAB.RAPDIS SL PRN (07:16)
[2020-08-30] MEDS: Cyanocobalamin (B-12) 1,000 MCG TABLET PO SCH (07:32)
[2020-08-30] MEDS: Cholecalciferol (D-3) 1,000 UNIT (25MCG) TABLET PO SCH (07:32)
[2020-08-30] MEDS: Acetaminophen 325 MG TABLET PO PRN (07:35)
[2020-08-30] MEDS ORDERED: metroNIDAZOLE 500 MG TABLET PO SCH (09:00)
[2020-09-01 18:53] LABS: Pancreatic Elastase, Fecal 125 ug/g (>=100)
== END 2020-08-30 11:00 | disposition home or self-care (01) ==
LOC: 3ANU 19:09 → EMEROOARM 19:09 → SUATTDRO 23:09 → 3ANU 23:40
PROVIDERS: ADMIT Internal Medicine; ATTEND Internal Medicine

== ENCOUNTER 2021-01-12 09:02 | Inpatient (IN) ==
[2021-01-12] MEDS ORDERED: 0.9 % Sodium Chloride 1,000 ML IVC ONE (09:39)
[2021-01-12] MEDS ORDERED: Isovue-370 500 ML BOTTLE IVP ONE ×2 (09:39→10:00)
[2021-01-12] MEDS ORDERED: Ondansetron 4 MG/2 ML VIAL IVP ONE (09:39)
[2021-01-12] MEDS ORDERED: Morphine Sulfate 2 MG/ML SYRINGE IVP ONE (09:39)
[2021-01-12 10:12] LABS: Hematocrit 39.6 % (35.3-44.9); Hemoglobin 12.3 g/dL (11.5-15.4); Lymphocytes # 0.9 K/mcL (0.6-4.6); Mean Corpuscular HGB Conc 31.1 g/dL (31.6-35.5); Mean Corpuscular Hemoglobin 28.4 pg (28.0-33.3); Mean Corpuscular Volume 91.5 fL (83.0-100.0); Mean Platelet Volume 10.6 fL (9.4-12.4); Platelet Count 208 K/mcL (140-400); Red Blood Count 4.33 M/mcL (3.82-4.97); Red Cell Distribution Width 14.6 % (11.5-14.5); White Blood Count 11.6 K/mcL (4.3-11.1)
[2021-01-12 10:14] LABS: INR 1.4; Prothrombin Time 15.8 Seconds (9.4-12.1)
[2021-01-12 10:31] LABS: Alanine Aminotransferase 6 Units/L (7-52); Albumin 3.4 g/dL (3.5-5.7); Albumin/Globulin Ratio 1.1 (1.1-2.2); Alkaline Phosphatase 79 Units/L (34-104); Aspartate Amino Transferase 10 Units/L (13-39); BUN/Creatinine Ratio 25 (6-26); Bilirubin,Total 0.4 mg/dL (0.3-1.0); Blood Urea Nitrogen 19 mg/dL (8-23); Calcium 9.8 mg/dL (8.6-10.3); Carbon Dioxide 26 mEq/L (23-29); Chloride 104 mEq/L (98-107); Eosinophils # 0.1 K/mcL (0.0-0.6); Glucose 101 mg/dL (70-105); Lipase 5 Units/L (11-82); Monocytes # 0.6 K/mcL (0.0-1.3); Neutrophils # 9.9 K/mcL (1.6-8.9); Osmolality,Calculated 290 (280-300); Sodium 139 mEq/L (136-145); Total Protein 6.4 g/dL (6.4-8.9); Troponin I 0.04 ng/mL (< 0.04); eGFR For African Americans > 60 (> 60); eGFR For Non-African Americans > 60 (> 60)
[2021-01-12 10:32] LABS: Platelet Estimate Normal (Normal)
[2021-01-12] MEDS ORDERED: Pantoprazole 40 MG VIAL IVP ONE (12:38)
[2021-01-12] MEDS ORDERED: Naloxone 0.4 MG/ML INJ IVP PRN (13:30)
[2021-01-12] MEDS ORDERED: Ondansetron 4 MG/2 ML VIAL IVP PRN (13:30)
[2021-01-12] MEDS ORDERED: Perflutren Lipid Microsphere 1.3 ML in 0.9 % Sodium Chloride 8.7 ML IVP PRN (13:37)
[2021-01-12] MEDS ORDERED: SODIUM CHLORIDE/NAHCO3/KCL/PEG 4,000 ML SOLN.RECON PO ONE (15:19)
[2021-01-12] MEDS: Nicotine 21 MG PATCH.TD24 TD SCH (15:51)
[2021-01-12] MEDS: Ringers Solution, Lactated 1,000 ML IVC SCH (15:52)
[2021-01-12] MEDS: MetroNIDAZOLE 500 MG/100 ML 500 MG/100 ML BAG IVPB SCH (15:53)
[2021-01-12 16:43] LABS: Hematocrit 35.6 % (35.3-44.9); Hemoglobin 11.1 g/dL (11.5-15.4)
[2021-01-12] MEDS: Pantoprazole 40 MG VIAL IVP SCH (17:52)
[2021-01-12] MEDS: Mirtazapine 15 MG TABLET PO SCH (20:52)
[2021-01-12] MEDS: Lactobacillus 1 EACH CAP.SPRINK PO SCH (20:52)
[2021-01-13 01:48] LABS: Hematocrit 31.5 % (35.3-44.9); Hemoglobin 9.9 g/dL (11.5-15.4); Mean Corpuscular HGB Conc 31.4 g/dL (31.6-35.5); Mean Corpuscular Hemoglobin 28.4 pg (28.0-33.3); Mean Corpuscular Volume 90.3 fL (83.0-100.0); Mean Platelet Volume 10.1 fL (9.4-12.4); Platelet Count 161 K/mcL (140-400); Red Blood Count 3.49 M/mcL (3.82-4.97); Red Cell Distribution Width 14.7 % (11.5-14.5); White Blood Count 7.7 K/mcL (4.3-11.1)
[2021-01-13 02:16] LABS: BUN/Creatinine Ratio 15 (6-26); Blood Urea Nitrogen 8 mg/dL (8-23); Calcium 8.3 mg/dL (8.6-10.3); Carbon Dioxide 24 mEq/L (23-29); Chloride 106 mEq/L (98-107); Glucose 86 mg/dL (70-105); Magnesium 1.1 mg/dL (1.6-2.6); Osmolality,Calculated 282 (280-300); Potassium 3.3 mEq/L (3.5-5.1); Sodium 137 mEq/L (136-145); eGFR For African Americans > 60 (> 60); eGFR For Non-African Americans > 60 (> 60)
[2021-01-13] MEDS: MetroNIDAZOLE 500 MG/100 ML 500 MG/100 ML BAG IVPB SCH ×3 (02:58→16:06)
[2021-01-13] MEDS: Pantoprazole 40 MG VIAL IVP SCH ×2 (04:57→17:40)
[2021-01-13] MEDS: Ringers Solution, Lactated 1,000 ML IVC SCH (04:59)
[2021-01-13] MEDS ORDERED: *HR* Metoprolol 5 MG/5 ML VIAL IVP ONE (05:45)
[2021-01-13] MEDS ORDERED: Potassium Chloride 20 MEQ, Lidocaine 1% 2 ML in 0.9 % Sodium Chloride 250 ML IVPB ONE (05:52)
[2021-01-13] MEDS: Lactobacillus 1 EACH CAP.SPRINK PO SCH ×2 (08:56→21:24)
[2021-01-13] MEDS: Nicotine 21 MG PATCH.TD24 TD SCH (08:57)
[2021-01-13 10:41] LABS: Adenovirus Not Detected (Not Detect); Coronavirus 229E Not Detected (Not Detect); Coronavirus HKU1 Not Detected (Not Detect); Coronavirus NL63 Not Detected (Not Detect); Coronavirus OC43 Not Detected (Not Detect)
[2021-01-13 10:42] LABS: Bordetella Pertussis Not Detected (Not Detect); Chlamydophila pneumoniae Not Detected (Not Detect); Human Metapneumovirus Not Detected (Not Detect); Human Rhinovirus/Enterovirus Not Detected (Not Detect); Influenza A Subtype 2009 H1 Not Detected (Not Detect); Influenza B Not Detected (Not Detect); Mycoplasma pneumoniae Not Detected (Not Detect); Parainfluenza Virus 1 Not Detected (Not Detect); Parainfluenza Virus 2 Not Detected (Not Detect); Parainfluenza Virus 3 Not Detected (Not Detect); Parainfluenza Virus 4 Not Detected (Not Detect); Respiratory Syncytial Virus Not Detected (Not Detect); SARS-CoV-2 Not Detected (Not Detect)
[2021-01-13] MEDS ORDERED: Ondansetron 4 MG/2 ML VIAL ONE (13:13)
[2021-01-13] MEDS ORDERED: Lidocaine -MPF 2% 2 ML VIAL ONE (13:13)
[2021-01-13] MEDS ORDERED: *HR* Propofol 200 MG/20 ML VIAL IVP ONE (13:14)
[2021-01-13] MEDS: Acetaminophen 325 MG TABLET PO PRN ×2 (16:12→23:37)
[2021-01-13 17:31] LABS: Hematocrit 34.3 % (35.3-44.9); Hemoglobin 10.7 g/dL (11.5-15.4)
[2021-01-13] MEDS: Mirtazapine 15 MG TABLET PO SCH (21:24)
[2021-01-14] MEDS: MetroNIDAZOLE 500 MG/100 ML 500 MG/100 ML BAG IVPB SCH ×3 (00:13→17:09)
[2021-01-14] MEDS: Pantoprazole 40 MG VIAL IVP SCH ×2 (05:31→17:08)
[2021-01-14 06:07] LABS: Hematocrit 31.4 % (35.3-44.9); Hemoglobin 10.3 g/dL (11.5-15.4); Mean Corpuscular HGB Conc 32.8 g/dL (31.6-35.5); Mean Corpuscular Hemoglobin 29.5 pg (28.0-33.3); Mean Platelet Volume 10.4 fL (9.4-12.4); Platelet Count 154 K/mcL (140-400); Red Blood Count 3.49 M/mcL (3.82-4.97); Red Cell Distribution Width 14.8 % (11.5-14.5)
[2021-01-14 06:33] LABS: BUN/Creatinine Ratio 9 (6-26); Blood Urea Nitrogen 5 mg/dL (8-23); Calcium 8.2 mg/dL (8.6-10.3); Carbon Dioxide 25 mEq/L (23-29); Chloride 106 mEq/L (98-107); Glucose 75 mg/dL (70-105); Magnesium 1.7 mg/dL (1.6-2.6); Osmolality,Calculated 282 (280-300); Phosphorous 2.3 mg/dL (2.7-4.5); Potassium 3.5 mEq/L (3.5-5.1); Sodium 138 mEq/L (136-145); eGFR For African Americans > 60 (> 60); eGFR For Non-African Americans > 60 (> 60)
[2021-01-14 06:36] LABS: % Iron Saturation 46 % (15-50); Iron 76 mcg/dL (50-170); Transferrin 118 mg/dL (203-362)
[2021-01-14 06:46] LABS: Lymphocytes # 0.8 K/mcL (0.6-4.6); Monocytes # 0.3 K/mcL (0.0-1.3); Neutrophils # 6.2 K/mcL (1.6-8.9); Platelet Estimate Normal (Normal)
[2021-01-14 06:48] LABS: Ferritin 106 ng/mL (10-120)
[2021-01-14 06:54] LABS: Folate 10.3 ng/mL (3.0-16.0)
[2021-01-14 06:58] LABS: Vitamin B12 > 1500 pg/mL (250-1100)
[2021-01-14] MEDS: Lactobacillus 1 EACH CAP.SPRINK PO SCH ×2 (10:31→21:01)
[2021-01-14] MEDS: Nicotine 21 MG PATCH.TD24 TD SCH (10:33)
[2021-01-14] MEDS: Acetaminophen 325 MG TABLET PO PRN (11:23)
[2021-01-14] MEDS: lisinopriL 5 MG TABLET PO SCH (13:49)
[2021-01-14] MEDS: Mirtazapine 15 MG TABLET PO SCH (21:02)
[2021-01-15] MEDS: MetroNIDAZOLE 500 MG/100 ML 500 MG/100 ML BAG IVPB SCH ×2 (01:33→07:57)
[2021-01-15 05:40] LABS: Hematocrit 33.7 % (35.3-44.9); Mean Corpuscular HGB Conc 32.6 g/dL (31.6-35.5); Mean Corpuscular Hemoglobin 28.5 pg (28.0-33.3); Mean Corpuscular Volume 87.3 fL (83.0-100.0); Mean Platelet Volume 10.1 fL (9.4-12.4); Platelet Count 180 K/mcL (140-400); Red Blood Count 3.86 M/mcL (3.82-4.97); Red Cell Distribution Width 14.8 % (11.5-14.5)
[2021-01-15 06:00] LABS: Eosinophils # 0.2 K/mcL (0.0-0.6); Lymphocytes # 2.2 K/mcL (0.6-4.6); Monocytes # 0.4 K/mcL (0.0-1.3); Neutrophils # 7.2 K/mcL (1.6-8.9); Platelet Estimate Normal (Normal); Reactive Lymphocytes Present (Not Present)
[2021-01-15] MEDS: Pantoprazole 40 MG VIAL IVP SCH (06:36)
[2021-01-15] MEDS: Nicotine 21 MG PATCH.TD24 TD SCH (07:56)
[2021-01-15] MEDS: Lactobacillus 1 EACH CAP.SPRINK PO SCH (07:56)
[2021-01-15] MEDS: lisinopriL 5 MG TABLET PO SCH (07:56)
[2021-01-15] MEDS ORDERED: lisinopriL 5 MG TABLET PO ONE (08:33)
[2021-01-15] MEDS ORDERED: Fluconazole 150 MG TABLET PO ONE (10:31)
[2021-01-15 10:53] VITALS: BP 159/67
[2021-01-16] MEDS ORDERED: lisinopriL 5 MG TABLET PO SCH (09:00)
== END 2021-01-15 12:03 | disposition home or self-care (01) | DRG 393 ==
LOC: EMEROOARM 09:02 → 3BNU 09:02 → SUATTDRO 13:00 → 3BNU 13:47
PROVIDERS: ADMIT Internal Medicine; ATTEND Internal Medicine
PROC: ENDOCBX (2021-01-13 12:45)

== ENCOUNTER 2021-01-20 16:49 | Inpatient (IN) ==
[2021-01-20] MEDS ORDERED: Pantoprazole 40 MG VIAL IVP ONE (17:35)
[2021-01-20] MEDS ORDERED: 0.9 % Sodium Chloride 1,000 ML IVC ONE (17:35)
[2021-01-20] MEDS ORDERED: Isovue-370 500 ML BOTTLE IVP ONE (17:36)
[2021-01-20 18:40] LABS: INR 1.1
[2021-01-20 18:44] LABS: Activated Partial Thrombo Time 19.2 Seconds (26.0-36.0)
[2021-01-20 18:51] LABS: Alanine Aminotransferase 5 Units/L (7-52); Albumin 2.8 g/dL (3.5-5.7); Albumin/Globulin Ratio 1.6 (1.1-2.2); Alkaline Phosphatase 49 Units/L (34-104); Aspartate Amino Transferase 15 Units/L (13-39); BUN/Creatinine Ratio 19 (6-26); Bilirubin,Total 0.2 mg/dL (0.3-1.0); Blood Urea Nitrogen 12 mg/dL (8-23); Calcium 8.6 mg/dL (8.6-10.3); Carbon Dioxide 29 mEq/L (23-29); Chloride 106 mEq/L (98-107); Globulin 1.7 g/dL (2.4-3.5); Glucose 121 mg/dL (70-105); Osmolality,Calculated 293 (280-300); Potassium 3.7 mEq/L (3.5-5.1); Sodium 141 mEq/L (136-145); Total Protein 4.5 g/dL (6.4-8.9); Troponin I < 0.03 ng/mL (< 0.04); eGFR For African Americans > 60 (> 60); eGFR For Non-African Americans > 60 (> 60)
[2021-01-20] MEDS ORDERED: MetroNIDAZOLE 500 MG/100 ML 500 MG/100 ML BAG IVPB ONE (20:22)
[2021-01-20 20:33] LABS: Eosinophils % 0.1 %; Mean Corpuscular Hemoglobin 29.3 pg (28.0-33.3); Red Blood Count 1.91 M/mcL (3.82-4.97)
[2021-01-20 20:34] LABS: Basophils % 0.4 %; Hematocrit 17.7 % (35.3-44.9); Immature Granulocytes % 3.1 % (0-4); Lymphocytes # 1.6 K/mcL (0.6-4.6); Lymphocytes % 15.2 %; Mean Corpuscular HGB Conc 31.6 g/dL (31.6-35.5); Mean Corpuscular Volume 92.7 fL (83.0-100.0); Mean Platelet Volume 10.1 fL (9.4-12.4); Monocytes # 1.1 K/mcL (0.0-1.3); Monocytes % 10.7 %; Neutrophils # 7.3 K/mcL (1.6-8.9); Nucleated Red Blood Cells 1.1 /100 WBC (0); Platelet Count 308 K/mcL (140-400); Red Cell Distribution Width 16.1 % (11.5-14.5); Segmented Neutrophils % 70.5 %; White Blood Count 10.3 K/mcL (4.3-11.1)
[2021-01-20 20:45] LABS: Hemoglobin 5.6 g/dL (11.5-15.4)
[2021-01-20 21:05] LABS: Hypochromasia Present (Not Present); Polychromasia 2+ (Not Present)
[2021-01-20 21:06] LABS: Platelet Estimate Normal (Normal)
[2021-01-20] MEDS ORDERED: *HR* Promethazine 25 MG/ML VIAL IM PRN (21:23)
[2021-01-20] MEDS ORDERED: Naloxone 0.4 MG/ML INJ IVP PRN (21:23)
[2021-01-20] MEDS ORDERED: Ondansetron 4 MG/2 ML VIAL IVP PRN (21:23)
[2021-01-20] MEDS ORDERED: methylPREDNISolone 125 MG/2 ML VIAL IVP ONE (21:55)
[2021-01-20 22:43] LABS: Hematocrit 16.7 % (35.3-44.9)
[2021-01-20 22:45] LABS: Hemoglobin 5.3 g/dL (11.5-15.4)
[2021-01-20] MEDS ORDERED: 0.9 % Sodium Chloride 250 ML ONE (22:53)
[2021-01-20] MEDS: Melatonin 3 MG TABLET PO PRN (23:06)
[2021-01-21] MEDS: MetroNIDAZOLE 500 MG/100 ML 500 MG/100 ML BAG IVPB SCH ×4 (02:05→18:32)
[2021-01-21] MEDS ORDERED: 0.9 % Sodium Chloride 250 ML ONE (03:17)
[2021-01-21] MEDS ORDERED: Pantoprazole 40 MG VIAL IVP SCH (06:00)
[2021-01-21 08:04] LABS: Basophils # 0.1 K/mcL (0.0-0.2); Basophils % 0.5 %; Hematocrit 28.2 % (35.3-44.9); Lymphocytes # 0.7 K/mcL (0.6-4.6); Lymphocytes % 6.7 %; Mean Corpuscular HGB Conc 31.9 g/dL (31.6-35.5); Mean Corpuscular Hemoglobin 29.5 pg (28.0-33.3); Mean Corpuscular Volume 92.5 fL (83.0-100.0); Mean Platelet Volume 9.9 fL (9.4-12.4); Monocytes # 0.1 K/mcL (0.0-1.3); Neutrophils # 9.5 K/mcL (1.6-8.9); Nucleated Red Blood Cells 0.5 /100 WBC (0); Platelet Count 279 K/mcL (140-400); Red Blood Count 3.05 M/mcL (3.82-4.97); Red Cell Distribution Width 15.1 % (11.5-14.5); Segmented Neutrophils % 88.8 %; White Blood Count 10.7 K/mcL (4.3-11.1)
[2021-01-21 08:15] LABS: INR 1.1; Prothrombin Time 12.2 Seconds (9.4-12.1)
[2021-01-21] MEDS: methylPREDNISolone 125 MG/2 ML VIAL IVP SCH (08:15)
[2021-01-21] MEDS: lisinopriL 10 MG TABLET PO SCH (08:15)
[2021-01-21 08:22] LABS: Alanine Aminotransferase 5 Units/L (7-52); Albumin 2.9 g/dL (3.5-5.7); Albumin/Globulin Ratio 1.6 (1.1-2.2); Alkaline Phosphatase 49 Units/L (34-104); Aspartate Amino Transferase 16 Units/L (13-39); BUN/Creatinine Ratio 15 (6-26); Bilirubin,Total 0.4 mg/dL (0.3-1.0); Blood Urea Nitrogen 9 mg/dL (8-23); Calcium 7.9 mg/dL (8.6-10.3); Carbon Dioxide 26 mEq/L (23-29); Chloride 105 mEq/L (98-107); Globulin 1.8 g/dL (2.4-3.5); Glucose 170 mg/dL (70-105); Magnesium 1.5 mg/dL (1.6-2.6); Osmolality,Calculated 287 (280-300); Phosphorous 3.6 mg/dL (2.7-4.5); Potassium 3.8 mEq/L (3.5-5.1); Sodium 137 mEq/L (136-145); Total Protein 4.7 g/dL (6.4-8.9); eGFR For African Americans > 60 (> 60); eGFR For Non-African Americans > 60 (> 60)
[2021-01-21 10:09] LABS: Adenovirus Not Detected (Not Detect); Bordetella Pertussis Not Detected (Not Detect); Chlamydophila pneumoniae Not Detected (Not Detect); Coronavirus 229E Not Detected (Not Detect); Coronavirus HKU1 Not Detected (Not Detect); Coronavirus NL63 Not Detected (Not Detect); Coronavirus OC43 Not Detected (Not Detect); Human Metapneumovirus Not Detected (Not Detect); Human Rhinovirus/Enterovirus Not Detected (Not Detect); Influenza A Subtype 2009 H1 Not Detected (Not Detect); Influenza B Not Detected (Not Detect); Mycoplasma pneumoniae Not Detected (Not Detect); Parainfluenza Virus 1 Not Detected (Not Detect); Parainfluenza Virus 2 Not Detected (Not Detect); Parainfluenza Virus 3 Not Detected (Not Detect); Parainfluenza Virus 4 Not Detected (Not Detect); Respiratory Syncytial Virus Not Detected (Not Detect); SARS-CoV-2 Not Detected (Not Detect)
[2021-01-21] MEDS: Pantoprazole 40 MG in 0.9 % Sodium Chloride Mini Bag 100 ML IVC SCH ×3 (11:35→21:25)
[2021-01-21] MEDS ORDERED: Lidocaine -MPF 2% 5 ML VIAL SQ ONE (21:22)
[2021-01-21] MEDS ORDERED: *HR* Propofol 500 MG/50 ML BOTTLE IVP ONE (21:22)
[2021-01-21] MEDS: Mirtazapine 15 MG TABLET PO SCH (21:25)
[2021-01-22] MEDS: MetroNIDAZOLE 500 MG/100 ML 500 MG/100 ML BAG IVPB SCH ×2 (00:05→07:42)
[2021-01-22] MEDS: Pantoprazole 40 MG in 0.9 % Sodium Chloride Mini Bag 100 ML IVC SCH ×2 (03:09→07:43)
[2021-01-22 05:34] LABS: Hematocrit 26.4 % (35.3-44.9); Hemoglobin 8.7 g/dL (11.5-15.4); Mean Corpuscular Hemoglobin 30.1 pg (28.0-33.3); Mean Corpuscular Volume 91.3 fL (83.0-100.0); Mean Platelet Volume 10.6 fL (9.4-12.4); Platelet Count 322 K/mcL (140-400); Red Blood Count 2.89 M/mcL (3.82-4.97); Red Cell Distribution Width 15.8 % (11.5-14.5); White Blood Count 12.3 K/mcL (4.3-11.1)
[2021-01-22 05:51] LABS: BUN/Creatinine Ratio 15 (6-26); Blood Urea Nitrogen 11 mg/dL (8-23); Calcium 8.5 mg/dL (8.6-10.3); Carbon Dioxide 26 mEq/L (23-29); Chloride 107 mEq/L (98-107); Glucose 98 mg/dL (70-105); Magnesium 2.1 mg/dL (1.6-2.6); Osmolality,Calculated 287 (280-300); Potassium 3.5 mEq/L (3.5-5.1); Sodium 139 mEq/L (136-145); eGFR For African Americans > 60 (> 60); eGFR For Non-African Americans > 60 (> 60)
[2021-01-22] MEDS: lisinopriL 10 MG TABLET PO SCH (07:41)
[2021-01-22] MEDS: methylPREDNISolone 125 MG/2 ML VIAL IVP SCH (07:45)
[2021-01-22] MEDS: metroNIDAZOLE 500 MG TABLET PO SCH ×2 (16:35→20:29)
[2021-01-22] MEDS: Mirtazapine 15 MG TABLET PO SCH (20:29)
[2021-01-22] MEDS: Melatonin 3 MG TABLET PO PRN (20:29)
[2021-01-23 06:24] LABS: Basophils % 0.1 %; Eosinophils % 0.2 %; Hematocrit 24.5 % (35.3-44.9); Hemoglobin 7.8 g/dL (11.5-15.4); Immature Granulocytes % 0.5 % (0-4); Lymphocytes # 1.4 K/mcL (0.6-4.6); Lymphocytes % 14.4 %; Mean Corpuscular HGB Conc 31.8 g/dL (31.6-35.5); Mean Corpuscular Hemoglobin 29.7 pg (28.0-33.3); Mean Corpuscular Volume 93.2 fL (83.0-100.0); Mean Platelet Volume 10.3 fL (9.4-12.4); Monocytes % 10.7 %; Neutrophils # 7.2 K/mcL (1.6-8.9); Platelet Count 304 K/mcL (140-400); Red Blood Count 2.63 M/mcL (3.82-4.97); Red Cell Distribution Width 16.3 % (11.5-14.5); Segmented Neutrophils % 74.1 %; White Blood Count 9.7 K/mcL (4.3-11.1)
[2021-01-23 07:41] LABS: Alanine Aminotransferase 5 Units/L (7-52); Albumin 2.6 g/dL (3.5-5.7); Albumin/Globulin Ratio 1.5 (1.1-2.2); Alkaline Phosphatase 42 Units/L (34-104); Aspartate Amino Transferase 13 Units/L (13-39); BUN/Creatinine Ratio 15 (6-26); Bilirubin,Direct 0.1 mg/dL (0.0-0.2); Bilirubin,Indirect 0.2 mg/dL (0.0-1.0); Bilirubin,Total 0.3 mg/dL (0.3-1.0); Blood Urea Nitrogen 11 mg/dL (8-23); Calcium 8.3 mg/dL (8.6-10.3); Carbon Dioxide 29 mEq/L (23-29); Chloride 109 mEq/L (98-107); Globulin 1.7 g/dL (2.4-3.5); Glucose 90 mg/dL (70-105); Magnesium 1.9 mg/dL (1.6-2.6); Osmolality,Calculated 291 (280-300); Potassium 3.5 mEq/L (3.5-5.1); Sodium 141 mEq/L (136-145); Total Protein 4.3 g/dL (6.4-8.9); eGFR For African Americans > 60 (> 60); eGFR For Non-African Americans > 60 (> 60)
[2021-01-23 07:48] LABS: Thyroid Stimulating Hormone 4.829 mcIU/mL (0.340-5.600)
[2021-01-23 07:49] LABS: Folate 5.1 ng/mL (3.0-16.0)
[2021-01-23 08:05] LABS: Vitamin B12 > 1500 pg/mL (250-1100)
[2021-01-23] MEDS: predniSONE 20 MG TABLET PO SCH (08:16)
[2021-01-23] MEDS: metroNIDAZOLE 500 MG TABLET PO SCH ×3 (08:16→20:26)
[2021-01-23] MEDS: Lactobacillus 1 EACH CAP.SPRINK PO SCH (08:17)
[2021-01-23] MEDS: lisinopriL 10 MG TABLET PO SCH (08:17)
[2021-01-23] MEDS ORDERED: Isovue-370 500 ML BOTTLE IVP ONE (09:43)
[2021-01-23] MEDS: Iron Sucrose Complex 250 MG in 0.9 % Sodium Chloride 250 ML IVPB SCH (19:13)
[2021-01-23] MEDS: Mirtazapine 15 MG TABLET PO SCH (20:26)
[2021-01-24] MEDS: Lactobacillus 1 EACH CAP.SPRINK PO SCH ×2 (02:04→08:41)
[2021-01-24 07:10] LABS: Basophils % 0.2 %; Eosinophils % 0.2 %; Hemoglobin 9.3 g/dL (11.5-15.4); Immature Granulocytes % 0.7 % (0-4); Lymphocytes # 1.7 K/mcL (0.6-4.6); Lymphocytes % 14.4 %; Mean Corpuscular HGB Conc 32.1 g/dL (31.6-35.5); Mean Corpuscular Hemoglobin 30.1 pg (28.0-33.3); Mean Corpuscular Volume 93.9 fL (83.0-100.0); Mean Platelet Volume 10.2 fL (9.4-12.4); Monocytes # 1.1 K/mcL (0.0-1.3); Monocytes % 9.5 %; Neutrophils # 8.7 K/mcL (1.6-8.9); Platelet Count 329 K/mcL (140-400); Red Blood Count 3.09 M/mcL (3.82-4.97); Red Cell Distribution Width 16.6 % (11.5-14.5); White Blood Count 11.5 K/mcL (4.3-11.1)
[2021-01-24 07:35] LABS: BUN/Creatinine Ratio 15 (6-26); Blood Urea Nitrogen 10 mg/dL (8-23); Calcium 8.8 mg/dL (8.6-10.3); Carbon Dioxide 28 mEq/L (23-29); Chloride 105 mEq/L (98-107); Glucose 109 mg/dL (70-105); Magnesium 1.8 mg/dL (1.6-2.6); Osmolality,Calculated 290 (280-300); Sodium 140 mEq/L (136-145); eGFR For African Americans > 60 (> 60); eGFR For Non-African Americans > 60 (> 60)
[2021-01-24] MEDS: metroNIDAZOLE 500 MG TABLET PO SCH (08:41)
[2021-01-24] MEDS: lisinopriL 10 MG TABLET PO SCH (08:42)
[2021-01-24] MEDS: predniSONE 20 MG TABLET PO SCH (08:42)
[2021-01-24] MEDS ORDERED: amLODIPine 5 MG TABLET PO SCH (09:00)
[2021-01-24] MEDS ORDERED: Potassium Chloride 40 MEQ, Lidocaine 1% 2 ML in 0.9 % Sodium Chloride 500 ML IVPB ONE (10:00)
[2021-01-24 10:37] VITALS: BP 160/55
[2021-01-24] MEDS: Iron Sucrose Complex 250 MG in 0.9 % Sodium Chloride 250 ML IVPB SCH (10:58)
== END 2021-01-24 14:22 | disposition home health service (06) | DRG 811 ==
LOC: EMEROOARM 16:49 → 3ANU 16:49 → SUATTDRO 01-21 08:43
PROVIDERS: ADMIT Internal Medicine; ATTEND Pharmacist